=== PATIENT | female | born 1930 | race Caucasian/White ===

== ENCOUNTER 2018-03-13 16:07 | Emergency (ER) | payer MEDICARE, OTHER ==
[~2018-03-13] VITALS: Ht 167.6 cm; Wt 95.2 kg
[~2018-03-13 16:07] MED LIST: ASPI325; ASPI81CH PO; ASPI81EC; Amox Tr-K Clv1 EAC1 PO; BUME2 PO; CHRO200; CODLIVC PO; CYAN1000; DOC250 PO; GABA300 PO; GLUC500 PO; GLYMET5; HYDACE5; IBUP800; INSLI100I; INSULANI; INSULANPEN; LEVFLO250 PO; LEVFLO500; LEVFLO500 PO; LEVSOD75 PO; LOVA40; LOVA40 PO; MEGA BIOTIN10000 MCG PO; METO2.5 PO; NORT75 PO; OLME5TAB PO; OXYACE5T PO; Ocuvite Softge1 EAC1 PO; ROYAL JELLY PO; Renvela800 MG PO; STOMUL; Senna Laxative8.6 MG; Super B Comple150 MG PO; TOCO400; TURMERIC500 MG PO; VALS80; VITAMIN B12-FO1 EACH PO; Zofran Odt4 MG SL
[2018-03-13 17:38] LABS: BASOPHILS ABSOLUTE AUTO 0.06 K/mm3 (0.00-0.23); BASOPHILS PERCENT AUTO 1 % (0-2); EOSINOPHILS ABSOLUTE AUTO 0.28 K/mm3 (0.00-0.68); EOSINOPHILS PERCENT AUTO 3 % (0-6); Hematocrit 36.1 % (33.0-51.0); Hemoglobin 11.3 g/dL (11.5-16.0); IMMATURE GRAN ABSOLUTE AUTO 0.03 K/mm3 (0.00-0.10); IMMATURE GRAN PERCENT AUTO 0 % (0-1); LYMPHOCYTES ABSOLUTE AUTO 1.01 K/mm3 (0.84-5.20); LYMPHOCYTES PERCENT AUTO 10 % (21-46); MONOCYTES ABSOLUTE AUTO 1.03 K/mm3 (0.16-1.47); MONOCYTES PERCENT AUTO 10 % (4-13); Mean Corpuscular HGB 30.4 pg (26.0-34.0); Mean Corpuscular HGB Conc 31.3 g/dL (31.5-36.5); Mean Corpuscular Volume 97 fL (80-100); Mean Platelet Volume 9.4 fL (9.1-12.4); NEUTROPHILS ABSOLUTE AUTO 7.92 K/mm3 (1.96-9.15); NEUTROPHILS PERCENT AUTO 77 % (41-73); Platelet Count 477 K/mm3 (150-400); RDW Coefficient Variation 15.1 % (11.7-14.2); RDW Standard Deviation 54.1 fL (35.1-46.3); Red Blood Cell Count 3.72 M/mm3 (3.80-5.20); White Blood Cell Count 10.33 K/mm3 (4.00-11.30)
[2018-03-13 17:53] LABS: Albumin, Blood 3.4 g/dL (3.4-5.0); Albumin/Globulin Ratio 0.8 (0.8-1.8); Bilirubin, Total 0.2 mg/dL (0.1-1.0); Bun/Creatinine Ratio 16.9 (12.0-20.0); Calcium, Blood 9.7 mg/dL (8.5-10.1); Creatinine, Blood 2.19 mg/dL (0.40-1.00); Globulin, Blood 4.2 g/dL (2.2-4.0); Total Protein, Blood 7.6 g/dL (6.4-8.2)
[2018-03-13] MEDS ORDERED: CILO100 (18:01)
[2018-03-13] MEDS ORDERED: AMOCLA500 PO (18:02)
[2018-03-13] MEDS ORDERED: AMOX875 PO (18:03)
[2018-03-13 18:12] LABS: Creatine Kinase MB 6.7 ng/mL (0.0-3.6); Creatine Kinase MB Index 1.2 (0.0-4.0)
== END 2018-03-13 19:19 | disposition home or self-care (01) ==
LOC: ER 16:07
PROVIDERS: Physician Assistant
DX: S60.211A Contusion of right wrist, initial encounter (principal); E11.22 Type 2 diabetes mellitus with diabetic chronic kidney disease; N18.6 End stage renal disease; Z79.899 Other long term (current) drug therapy; Z79.82 Long term (current) use of aspirin; Z79.4 Long term (current) use of insulin; W19.XXXA Unspecified fall, initial encounter
CPT/HCPCS: 36415; 71046; 80053; 82550; 82553; 85025; 93005; 93010; 99284-25

== ENCOUNTER 2018-03-19 10:06 | Day surgery (SDC) | payer MEDICARE, OTHER ==
[~2018-03-19] VITALS: Ht 149.9 cm; Wt 81.0 kg
[~2018-03-19 10:06] MED LIST changes: +ACET500 PO; +AMOCLA500 PO; +AMOX875 PO; +CILO100; +LATANOPROST 0.7.5 ML BOTHEYES; +MEGARED OMEGA-1 EAC1 PO; -Senna Laxative8.6 MG; +Senna Laxative8.6 MG PO; +Stool Softener100 MG PO; +TOCO1000 PO; -TOCO400
--- NOTE | 2018-03-19 16:36 | NUR ---
1445-RECEIVED THIS PT FROM COUNSELING CENTER DIRECTOR. S/P STENT PLACED IN R POPLITEAL. PT IS DROWSY AND ORIENTED. SOMEWHAT SLEEPY MOST LIKELY SEDATING MEDICATION DURING PROCEDURE. LEFT GROIN ACCESS SITE HAS ANGIOSEAL CLOSURE. GROIN IS STABLE AND SOFT TO TOUCH. NO BLEEDING OR HEMATOMA NOTED. DOPPLED PULSES TO LEFT DP/PT, R POPLITEAL, R TB, NO DP PULSE NOTED. 1530-PT'S DAUGHTER REKHA AT BEDSIDE. EXPLAINED PLAN OF CARE TO PATIENT AND FAMILY. 1630-PT WAS SEEN BY DR. OGLESBY.
[2018-03-19 16:40] LABS: Anion Gap 8 mmol/L (6-16); Blood Urea Nitrogen 43 mg/dL (8-24); Bun/Creatinine Ratio 19.1 (12.0-20.0); CO2, Blood 23 mmol/L (21-32); Calcium, Blood 8.8 mg/dL (8.5-10.1); Chloride, Blood 106 mmol/L (98-108); Creatinine, Blood 2.25 mg/dL (0.40-1.00); Glomerular Filtration Rate 22 (60-); Glucose, Blood 137 mg/dL (70-99); Phosphorus, Blood 3.8 mg/dL (2.5-4.9); Sodium, Blood 137 mmol/L (136-145)
[2018-03-19] MEDS ORDERED: CYAN500 PO (18:00)
[2018-03-19] MEDS ORDERED: MEGARED OMEGA-1 EAC1 PO (18:02)
[2018-03-19] MEDS ORDERED: MIRALAX17 GM PO (18:07)
[2018-03-19] MEDS ORDERED: ROYAL JELLY PO (18:10)
[2018-03-19] MEDS ORDERED: LITTLE REMEDIE118 M1 PO (18:11)
[2018-03-19] MEDS ORDERED: TYLENOL325 MG PO (18:13)
--- NOTE | 2018-03-19 19:14 | NUR ---
SHIFT SUMMARY: PT IS ALERT AND ORIENTED. LEFT GROIN ACCESS SITE STABLE. PEDAL PULSES ARE ALL DOPPLED. DR. SOTO CAME BY TO SEE PT. PT WILL BE DIALYSED TOMORROW.
--- NOTE | 2018-03-19 20:00 | NUR ---
ASSUMED CARE OF PT AT 1900. REPORT RECEIVED AT BEDSIDE. PT PRESENTS IN BED. ALERT AND MILDLY CONFUSED. VERY PLEASANT AND COOPERATIVE WITH CARE AND ASSESSMENT. LEFT GROIN ACCESS SITE WITH SMALL AMOUNT OF SHADOW DRAINAGE ON CHG DRESSING. GROIN SOFT WITHOUT HEMATOMA. DOPPLER PULSES PERIPHERALLY. RIGHT FOOT WITH RUDDISH COLOR THOUGH IS WARM (WNL) TO TOUCH. LEFT LEG COOLER TO THE TOUCH WITH NORMAL COLORATION. WILL REVIEW CHART AND PLAN OF CARE FOR THIS PT.
--- NOTE | 2018-03-19 22:57 | NUR ---
PT HAS MADE ATTEMPTS TO URINATE AND HAS NOT BEEN ABLE TO GO. BLADDER SCAN DONE WHICH REVEALS GREATER THAN 999 ML URINE. CALL MADE TO DR SOTO. ORDER RECEIVED FOR CARREON CATHETER. PT MADE AWARE OF ORDER, AND IS ACCEPTING. PLACED 14 SLOVENIAN CARREON CATHETER WITHOUT ISSUES. RETURN OF CLEAR YELLOW URINE. PT STATES SHE FEELS RELIEF BLADDER DRAINS. SENT URINE SAMPLE FOR UA. PT NOW RESTING IN BED WITHOUT COMPLAINTS.
--- NOTE | 2018-03-20 02:44 | NUR ---
PT HAS BEEN ABLE TO REST WITHOUT COMPLAINTS SINCE PLACING CARREON CATHETER. HAVE EMPTIED. 925 ML URINE FROM CATHETER. GROIN ACCESS SITE AT LEFT GROIN SOFT WITHOUT HEMATOMA. NO INCREASE IN SHADOW DRAINAGE. DOPPLER PERIPHERAL PULSES. PT TOLERATES Q 2 HOUR TURNS. WILL CONTINUE TO MONITOR PT.
[2018-03-20 03:26] LABS: Source, Urine Catheter
[2018-03-20 03:32] LABS: Bilirubin, Urine Neg (Neg); Blood, Urine Neg (Neg); Glucose Qualitative, Urine 3+ (Neg); Ketones, Urine Neg (Neg); Leukocyte Esterase, Urine Neg (Neg); Nitrite, Urine Neg (Neg); Protein, Urine 3+ (Neg); Urobilinogen, Urine NORM (Normal)
[2018-03-20 03:34] LABS: Appearance, Urine Clear (Clear); Color, Urine Yellow (P-Yellow)
[2018-03-20 03:41] LABS: Bacteria Not Seen /hpf; Red Blood Cells, Urine Not Seen /hpf (0-2); Squamous Epithelial Cells Few /hpf (Few); White Blood Cells, Urine Not Seen /hpf (0-5)
[2018-03-20 04:04] LABS: Hematocrit 33.2 % (33.0-51.0); Hemoglobin 10.2 g/dL (11.5-16.0)
[2018-03-20 04:23] LABS: Albumin, Blood 2.9 g/dL (3.4-5.0); Anion Gap 9 mmol/L (6-16); Blood Urea Nitrogen 42 mg/dL (8-24); Bun/Creatinine Ratio 17.5 (12.0-20.0); CO2, Blood 26 mmol/L (21-32); Calcium, Blood 8.8 mg/dL (8.5-10.1); Chloride, Blood 107 mmol/L (98-108); Glomerular Filtration Rate 20 (60-); Glucose, Blood 75 mg/dL (70-99); Phosphorus, Blood 3.6 mg/dL (2.5-4.9); Potassium, Blood 4.3 mmol/L (3.5-5.5); Sodium, Blood 142 mmol/L (136-145)
--- NOTE | 2018-03-20 05:53 | NUR ---
PT HAS BEEN ABLE TO SLEEP THIS NIGHT. DOES AWAKEN EASILY TO VERBAL STIMULI. DENIES COMPLAINT. CARREON CATHETER REMAINS PATENT. DRAINING YELLOW URINE. LEFT GROIN SITE REMAINS SOFT WITHOUT HEMATOMA OR BLEED. CMS REMAIN RECORDED PREVIOUSLY. WILL CONTINUE TO MONITOR PT, AND WILL REPORT OFF TO ONCOMING RN.
--- NOTE | 2018-03-20 07:07 | NUR ---
JEREMIAH, FROM DIALYSIS CALLED. PATIENT IS TO BE DISHARGED TO DIALYSIS CLINIC FOR APPT AT 1230.
--- NOTE | 2018-03-20 07:22 | NUR ---
ASSUMED CARE REPORT FROM JUAN F PEREZ. LEFT GROIN SITE STABLE. RIGHT FOOT IS WARM AND PINK. GREAT TOE BLACK. BILAT PEDAL PULSES BY DOPPLER ONLY. PATIENT REPORTS SHE HAS AN APPOINTMENT WITH ROLL EXAMINER FOR TOE.
--- NOTE | 2018-03-20 08:28 | NUR ---
MD VISIT DR. OGLESBY IN. WILL ENTER DISCHARGE ORDERS
--- NOTE | 2018-03-20 09:44 | NUR ---
DAUGHTER CALLED. SHE WILL PICK PATIENT UP AT [facility] AFTER DIALYSIS.
[2018-03-20] MEDS ORDERED: CLOP75 PO (10:57)
[2018-03-20] MEDS ORDERED: TAMS.4ER PO (10:57)
--- NOTE | 2018-03-20 11:19 | NUR ---
[facility] SCHEDULED TO PICK PATIENT UP FOR APPT AT [facility]
--- NOTE | 2018-03-20 12:20 | NUR ---
PATIENT TAKEN BY WHEELCHAIR BY [facility] AT 1210
== END 2018-03-20 12:10 | disposition home or self-care (01) ==
LOC: MHTC 10:06 → ICUW 10:06 → MHTC 10:08 → ICUW 14:38 → MHTC 03-20 12:10
PROVIDERS: Internal Medicine; Internal Medicine Nephrology
DX: E11.51 Type 2 diabetes mellitus with diabetic peripheral angiopathy without gangrene (principal); I73.9 Peripheral vascular disease, unspecified; E11.22 Type 2 diabetes mellitus with diabetic chronic kidney disease; I12.0 Hypertensive chronic kidney disease with stage 5 chronic kidney disease or end stage renal disease; N18.6 End stage renal disease; D63.1 Anemia in chronic kidney disease; E86.9 Volume depletion, unspecified; Z99.2 Dependence on renal dialysis; Z88.5 Allergy status to narcotic agent
CPT/HCPCS: 36415; 37226; 37228; 51702; 75625; 75716; 75774; 76937; 80069; 81001; 82947; 83735; 84132; 85014; 85018; 85347; 99152; 99153; C1725; C1760; C1769; C1876; C1887; C1894; C2623; J0881; J1644; J1650; J2250; J2997; J3010; J7030; J7040; Q9967

== ENCOUNTER → 2018-03-31 | Outpatient (CLI) | payer MEDICARE, OTHER ==
[~2018-03-31] MED LIST changes: +ACET325S PR; +ATROPINE 0.01%-10 ML SL; +BIOTIN10000 MC1 PO; +BUME1 PO; +CHROMIUM PIC1000 MCG PO; +CLOP75 PO; +CYAN500 PO; +Cilostazol50 MG PO; +Cod Liver Oil1 EAC2 PO; +DOCU100 PO; +Humalog100 UNIT/1 SC; +INSULANPEN SC; +Istalol2.5 ML BOTHEYES; +LATANOPROST2.5 ML BOTHEYES; +LITTLE REMEDIE118 M1 PO; +LORA1 PO; +MEGA RED PO; +MIRALAX17 GM PO; +MORP20L SL; +OLME20 PO; +SEVEC800 PO; +Senna8.6 MG PO; +Super B With V1 EACH PO; +TAMS.4ER PO; +TYLENOL325 MG PO; +Transderm-Scop1 EACH TD; +Tylenol325 MG PO; +VITAMIN B12 PO; +VITAMIN E PO
== END | disposition home or self-care (01) ==
LOC: LAB SHORT 11:22 → PLD 11:22
DX: E11.59 Type 2 diabetes mellitus with other circulatory complications (principal); E11.621 Type 2 diabetes mellitus with foot ulcer; L97.509 Non-pressure chronic ulcer of other part of unspecified foot with unspecified severity
CPT/HCPCS: 88305; 88311

== ENCOUNTER 2018-04-15 16:51 | Inpatient (IN) | payer MEDICARE, OTHER ==
[~2018-04-15] VITALS: Ht 160 cm; Wt 72.7 kg
[~2018-04-15 16:51] MED LIST changes: -ACET325S PR; -ATROPINE 0.01%-10 ML SL; -BIOTIN10000 MC1 PO; -BUME1 PO; -CHROMIUM PIC1000 MCG PO; -Cilostazol50 MG PO; -Cod Liver Oil1 EAC2 PO; -DOCU100 PO; -Humalog100 UNIT/1 SC; -INSULANPEN SC; -Istalol2.5 ML BOTHEYES; -LATANOPROST2.5 ML BOTHEYES; -LORA1 PO; -MEGA RED PO; -MORP20L SL; -OLME20 PO; -SEVEC800 PO; -Senna8.6 MG PO; -Super B With V1 EACH PO; -Transderm-Scop1 EACH TD; -Tylenol325 MG PO; -VITAMIN B12 PO; -VITAMIN E PO
[2018-04-15] MEDS ORDERED: Humalog100 UNIT/1 SC (17:30)
[2018-04-15] MEDS ORDERED: INSULANPEN SC (17:30)
[2018-04-15] MEDS ORDERED: LOVA40 PO (17:31)
[2018-04-15] MEDS ORDERED: GABA300 PO (17:31)
[2018-04-15] MEDS ORDERED: CILO100 (17:31)
[2018-04-15] MEDS ORDERED: BUME1 PO (17:31)
[2018-04-15] MEDS ORDERED: OLME20 PO (17:32)
[2018-04-15] MEDS ORDERED: NORT75 PO (17:32)
[2018-04-15] MEDS ORDERED: SEVEC800 PO (17:32)
[2018-04-15] MEDS ORDERED: Cilostazol50 MG PO (17:33)
[2018-04-15] MEDS ORDERED: Istalol2.5 ML BOTHEYES (17:33)
[2018-04-15 17:50] LABS: BASOPHILS ABSOLUTE AUTO 0.05 K/mm3 (0.00-0.23); BASOPHILS PERCENT AUTO 1 % (0-2); EOSINOPHILS ABSOLUTE AUTO 0.53 K/mm3 (0.00-0.68); EOSINOPHILS PERCENT AUTO 5 % (0-6); Hematocrit 35.1 % (33.0-51.0); Hemoglobin 10.7 g/dL (11.5-16.0); IMMATURE GRAN ABSOLUTE AUTO 0.03 K/mm3 (0.00-0.10); IMMATURE GRAN PERCENT AUTO 0 % (0-1); LYMPHOCYTES ABSOLUTE AUTO 1.45 K/mm3 (0.84-5.20); LYMPHOCYTES PERCENT AUTO 15 % (21-46); MONOCYTES ABSOLUTE AUTO 0.88 K/mm3 (0.16-1.47); MONOCYTES PERCENT AUTO 9 % (4-13); Mean Corpuscular HGB 29.6 pg (26.0-34.0); Mean Corpuscular HGB Conc 30.5 g/dL (31.5-36.5); Mean Corpuscular Volume 97 fL (80-100); Mean Platelet Volume 10.3 fL (9.1-12.4); NEUTROPHILS ABSOLUTE AUTO 7.03 K/mm3 (1.96-9.15); NEUTROPHILS PERCENT AUTO 71 % (41-73); Platelet Count 371 K/mm3 (150-400); RDW Standard Deviation 60.3 fL (35.1-46.3); Red Blood Cell Count 3.62 M/mm3 (3.80-5.20); White Blood Cell Count 9.97 K/mm3 (4.00-11.30)
[2018-04-15 18:14] LABS: Alanine Aminotransfer (ALT/SGP 20 U/L (12-78); Albumin, Blood 3.4 g/dL (3.4-5.0); Albumin/Globulin Ratio 0.9 (0.8-1.8); Alk Phos 87 U/L (50-136); Anion Gap 10 mmol/L (6-16); Aspartate Aminotrans (AST/SGOT 13 U/L (12-37); Bilirubin, Total 0.3 mg/dL (0.1-1.0); Blood Urea Nitrogen 36 mg/dL (8-24); Bun/Creatinine Ratio 16.1 (12.0-20.0); CO2, Blood 24 mmol/L (21-32); Calcium, Blood 9.9 mg/dL (8.5-10.1); Chloride, Blood 105 mmol/L (98-108); Creatinine, Blood 2.24 mg/dL (0.40-1.00); Globulin, Blood 3.7 g/dL (2.2-4.0); Glomerular Filtration Rate 22 (60-); Glucose, Blood 115 mg/dL (70-99); Potassium, Blood 3.9 mmol/L (3.5-5.5); Sodium, Blood 139 mmol/L (136-145); Total Protein, Blood 7.1 g/dL (6.4-8.2); Troponin I <0.015 ng/mL (0.000-0.040)
[2018-04-15 18:33] LABS: Source, Urine Catheter
[2018-04-15 18:59] LABS: Bilirubin, Urine Neg (Neg); Blood, Urine 3+ (Neg); Glucose Qualitative, Urine Neg (Neg); Ketones, Urine Neg (Neg); Leukocyte Esterase, Urine 3+ (Neg); Nitrite, Urine Neg (Neg); Protein, Urine 3+ (Neg); Urobilinogen, Urine NORM (Normal)
[2018-04-15 19:27] LABS: Appearance, Urine Hazy (Clear); Color, Urine Yellow (P-Yellow)
[2018-04-15 19:28] LABS: Bacteria Many /hpf; Red Blood Cells, Urine 0-2 /hpf (0-2); Squamous Epithelial Cells Not Seen /hpf (Few); White Blood Cells, Urine TNTC /hpf (0-5)
--- NOTE | 2018-04-16 00:52 | NUR ---
ADMIT NOTE PT ADMITTED WITH TOXIC METABOLIC ENCEPHALOPATHY. PT ALERT TO SELF ONLY. PT EDUCATED [employer], PT STATES SHE KNOWS HOW TO USE IT. PT NOTED TO HAVE REDNESS TO LOWER EXTREMITIES BILAT, HAS DRESSING ON RIGHT FOOT DUE TO RECENT TOE AMPUTATION. DRESSING C/D/I. PT NOTED TO HAVE BRUISED INNER UPPER LEFT THIGH AND NOTED TO HAVE SMALL PRESSURE UCLER TO COCCYX, MEPILEX IN PLACE. BLADDER SCAN DONE PER ORDER AND IS [address] SOTO NOTIFIED PER ORDER.
[2018-04-16 06:00] LABS: BASOPHILS ABSOLUTE AUTO 0.06 K/mm3 (0.00-0.23); BASOPHILS PERCENT AUTO 1 % (0-2); EOSINOPHILS ABSOLUTE AUTO 0.66 K/mm3 (0.00-0.68); EOSINOPHILS PERCENT AUTO 8 % (0-6); Hematocrit 33.7 % (33.0-51.0); Hemoglobin 10.3 g/dL (11.5-16.0); IMMATURE GRAN ABSOLUTE AUTO 0.03 K/mm3 (0.00-0.10); IMMATURE GRAN PERCENT AUTO 0 % (0-1); LYMPHOCYTES ABSOLUTE AUTO 1.52 K/mm3 (0.84-5.20); LYMPHOCYTES PERCENT AUTO 18 % (21-46); MONOCYTES ABSOLUTE AUTO 0.68 K/mm3 (0.16-1.47); MONOCYTES PERCENT AUTO 8 % (4-13); Mean Corpuscular HGB 29.7 pg (26.0-34.0); Mean Corpuscular HGB Conc 30.6 g/dL (31.5-36.5); Mean Corpuscular Volume 97 fL (80-100); Mean Platelet Volume 10.3 fL (9.1-12.4); NEUTROPHILS ABSOLUTE AUTO 5.52 K/mm3 (1.96-9.15); NEUTROPHILS PERCENT AUTO 65 % (41-73); Platelet Count 367 K/mm3 (150-400); RDW Standard Deviation 61.1 fL (35.1-46.3); Red Blood Cell Count 3.47 M/mm3 (3.80-5.20); White Blood Cell Count 8.47 K/mm3 (4.00-11.30)
--- NOTE | 2018-04-16 06:15 | NUR ---
SHIFT SUMMARY PT SLEPT POORLY, CRYING MUCH OF NIGHT. PT RECEIVED TYLENOL AND TRAMADOL FOR PAIN. PT VOIDED 500 ML'S YELLOW URINE. URINE FOUL SMELLING. NEW MEPILEX PLACED ON COCCYX, SMALL PEN CAP SIZE HEALING PRESSURE ULCER NOTED. HEAVY ASSIST OF 2 AND GAIT BELT TO BSC, WOULD SUGGEST USING A BEDPAN NEXT TIME PT DOES NOT STAND WELL AND IS WEIGHT. PT RESISTIVE WHEN TRYING TO STAND. WILL CONTINUE TO MONITOR.
[2018-04-16 06:21] LABS: Magnesium, Blood 1.9 mg/dL (1.6-2.4)
[2018-04-16 07:03] LABS: Alanine Aminotransfer (ALT/SGP 16 U/L (12-78); Albumin, Blood 3.1 g/dL (3.4-5.0); Albumin/Globulin Ratio 0.9 (0.8-1.8); Alk Phos 82 U/L (50-136); Anion Gap 10 mmol/L (6-16); Aspartate Aminotrans (AST/SGOT 15 U/L (12-37); Bilirubin, Total 0.5 mg/dL (0.1-1.0); Blood Urea Nitrogen 31 mg/dL (8-24); Bun/Creatinine Ratio 15.6 (12.0-20.0); CO2, Blood 25 mmol/L (21-32); Calcium, Blood 8.6 mg/dL (8.5-10.1); Chloride, Blood 108 mmol/L (98-108); Creatinine, Blood 1.99 mg/dL (0.40-1.00); Globulin, Blood 3.6 g/dL (2.2-4.0); Glomerular Filtration Rate 25 (60-); Glucose, Blood 99 mg/dL (70-99); Phosphorus, Blood 2.8 mg/dL (2.5-4.9); Potassium, Blood 3.2 mmol/L (3.5-5.5); Sodium, Blood 143 mmol/L (136-145); Total Protein, Blood 6.7 g/dL (6.4-8.2)
[2018-04-16] MEDS ORDERED: LEVSOD75 PO (15:41)
[2018-04-16] MEDS ORDERED: ASPI81CH PO (15:44)
[2018-04-16] MEDS ORDERED: LATANOPROST2.5 ML BOTHEYES (15:48)
[2018-04-16] MEDS ORDERED: Tylenol325 MG PO (15:49)
[2018-04-16] MEDS ORDERED: Cod Liver Oil1 EAC2 PO (15:52)
[2018-04-16] MEDS ORDERED: MEGA RED PO (15:52)
[2018-04-16] MEDS ORDERED: Senna8.6 MG PO (15:53)
[2018-04-16] MEDS ORDERED: VITAMIN E PO (15:54)
[2018-04-16] MEDS ORDERED: Super B With V1 EACH PO (15:55)
[2018-04-16] MEDS ORDERED: BIOTIN10000 MC1 PO (15:55)
[2018-04-16] MEDS ORDERED: CHROMIUM PIC1000 MCG PO (15:56)
[2018-04-16] MEDS ORDERED: VITAMIN B12 PO (15:57)
[2018-04-16] MEDS ORDERED: DOCU100 PO (15:57)
[2018-04-16] MEDS ORDERED: ROYAL JELLY PO (15:57)
--- NOTE | 2018-04-16 16:31 | NUR ---
PT IS ALERT AND ORIENTED TO SELF. HER WOUNDS HAVE BEEN PHOTOGRAPHED, AND DOCUMENTED AND DRESSINGS CHANGED. HEEL PROTECTORS ARE IN PLACE. PT IS INCONTINENT OF BOWEL AND BLADDER. ATTENDS IN PLACE AND CHANGED NEEDED. LUCAS CARE PROVIDED NEEDED. PT MISSED DIALYSIS ON FRIDAY BUT IS SCHEDULED FOR DIALYSIS ON 04/17/18. PT'S FISTULA IS IN HER LEFT FOREARM. PT ABLE TO TAKE PILLS WHOLE IN APPLESAUCE. ACHS ON A MEDIUM SLIDING SCALE. DAUGHTER BROUGHT IN HOME MEDICATIONS TO COMPLETE MEDICATION RECONCILIATION. DAUGHTER ALSO BROUGHT PT'S BOOT TO WEAR WHEN WALKING.
--- NOTE | 2018-04-17 04:55 | NUR ---
SHIFT SUMMARY PT AWAKE OVER HALF THE NIGHT, MOANING, BUT WHEN ASKED IF HAVING PAIN PT DOES NOT ANSWER APPROPRIATLEY. PT RESISTS TURNS AND REPOSITIONING. PT DOES NOT FOLLOW DIRECTION. PT INCONTINENT OF URINE DURING THE NIGHT. PT GRABS AT LEFT HIP IF IN PAIN. PT FEARS FALLING WHEN BEING TURNED AND POSITIONED. NO ACUTE CHANGES NOTED, WILL CONTINUE TO MONITOR.
[2018-04-17 04:58] LABS: BASOPHILS ABSOLUTE AUTO 0.09 K/mm3 (0.00-0.23); BASOPHILS PERCENT AUTO 1 % (0-2); EOSINOPHILS ABSOLUTE AUTO 0.51 K/mm3 (0.00-0.68); EOSINOPHILS PERCENT AUTO 5 % (0-6); Hematocrit 37.5 % (33.0-51.0); Hemoglobin 11.3 g/dL (11.5-16.0); IMMATURE GRAN ABSOLUTE AUTO 0.03 K/mm3 (0.00-0.10); IMMATURE GRAN PERCENT AUTO 0 % (0-1); LYMPHOCYTES ABSOLUTE AUTO 1.15 K/mm3 (0.84-5.20); LYMPHOCYTES PERCENT AUTO 11 % (21-46); MONOCYTES PERCENT AUTO 8 % (4-13); Mean Corpuscular HGB 30.3 pg (26.0-34.0); Mean Corpuscular HGB Conc 30.1 g/dL (31.5-36.5); NEUTROPHILS ABSOLUTE AUTO 8.03 K/mm3 (1.96-9.15); NEUTROPHILS PERCENT AUTO 76 % (41-73); Platelet Count 398 K/mm3 (150-400); RDW Coefficient Variation 16.9 % (11.7-14.2); RDW Standard Deviation 63.1 fL (35.1-46.3); Red Blood Cell Count 3.73 M/mm3 (3.80-5.20); White Blood Cell Count 10.61 K/mm3 (4.00-11.30)
[2018-04-17 05:09] LABS: Mean Corpuscular Volume 101 fL (80-100)
[2018-04-17 05:32] LABS: Albumin, Blood 3.3 g/dL (3.4-5.0); Anion Gap 10 mmol/L (6-16); Blood Urea Nitrogen 28 mg/dL (8-24); Bun/Creatinine Ratio 15.1 (12.0-20.0); CO2, Blood 22 mmol/L (21-32); Calcium, Blood 8.9 mg/dL (8.5-10.1); Chloride, Blood 111 mmol/L (98-108); Creatinine, Blood 1.85 mg/dL (0.40-1.00); Glomerular Filtration Rate 27 (60-); Glucose, Blood 174 mg/dL (70-99); Phosphorus, Blood 2.9 mg/dL (2.5-4.9); Potassium, Blood 4.3 mmol/L (3.5-5.5); Sodium, Blood 143 mmol/L (136-145)
--- NOTE | 2018-04-17 15:00 | NUR ---
SPOKE WITH DR. COELHO ABOUT PATIENTS POOR INTAKE AND VERY LITTLE U/O. PULSE IN THE 120'S, PATIENT VERY AGITATED AND CONFUSED. ORDERS RECEIVED FOR LABS, IV FLUIDS AND CARREON PLACEMENT.
[2018-04-17 15:49] LABS: BASOPHILS ABSOLUTE AUTO 0.11 K/mm3 (0.00-0.23); BASOPHILS PERCENT AUTO 1 % (0-2); EOSINOPHILS ABSOLUTE AUTO 0.26 K/mm3 (0.00-0.68); EOSINOPHILS PERCENT AUTO 2 % (0-6); Hemoglobin 11.7 g/dL (11.5-16.0); IMMATURE GRAN ABSOLUTE AUTO 0.03 K/mm3 (0.00-0.10); IMMATURE GRAN PERCENT AUTO 0 % (0-1); LYMPHOCYTES ABSOLUTE AUTO 1.12 K/mm3 (0.84-5.20); LYMPHOCYTES PERCENT AUTO 9 % (21-46); MONOCYTES ABSOLUTE AUTO 0.94 K/mm3 (0.16-1.47); MONOCYTES PERCENT AUTO 8 % (4-13); Mean Corpuscular HGB 29.6 pg (26.0-34.0); Mean Corpuscular Volume 99 fL (80-100); Mean Platelet Volume 10.1 fL (9.1-12.4); NEUTROPHILS PERCENT AUTO 80 % (41-73); Platelet Count 408 K/mm3 (150-400); RDW Coefficient Variation 16.8 % (11.7-14.2); RDW Standard Deviation 61.4 fL (35.1-46.3); Red Blood Cell Count 3.95 M/mm3 (3.80-5.20); White Blood Cell Count 12.46 K/mm3 (4.00-11.30)
[2018-04-17 16:13] LABS: Albumin, Blood 3.3 g/dL (3.4-5.0); Albumin/Globulin Ratio 0.8 (0.8-1.8); Bilirubin, Total 0.3 mg/dL (0.1-1.0); Bun/Creatinine Ratio 14.9 (12.0-20.0); Calcium, Blood 9.2 mg/dL (8.5-10.1); Creatinine, Blood 2.01 mg/dL (0.40-1.00); Globulin, Blood 4.3 g/dL (2.2-4.0); Potassium, Blood 4.4 mmol/L (3.5-5.5); Total Protein, Blood 7.6 g/dL (6.4-8.2)
[2018-04-17 16:24] LABS: Source, Urine Catheter
[2018-04-17 16:36] LABS: Appearance, Urine Hazy (Clear); Bilirubin, Urine Neg (Neg); Blood, Urine 3+ (Neg); Color, Urine Yellow (P-Yellow); Glucose Qualitative, Urine 2+ (Neg); Ketones, Urine 1+ (Neg); Leukocyte Esterase, Urine 2+ (Neg); Nitrite, Urine Pos (Neg); Protein, Urine 3+ (Neg); Specific Gravity, Urine 1.015 (1.003-1.022); Urobilinogen, Urine NORM (Normal)
[2018-04-17 16:58] LABS: Squamous Epithelial Cells Rare /hpf (Few); White Blood Cells, Urine 25-50 /hpf (0-5)
[2018-04-17 16:59] LABS: Bacteria Few /hpf; Red Blood Cells, Urine 25-50 /hpf (0-2)
--- NOTE | 2018-04-17 18:12 | NUR ---
PATIENT VERY ANXIOUS AND CONFUSED THIS SHIFT, UNABLE TO ANSWER QUESTIONS OR FOLLOW COMMANDS. NOT EATING OR DRINKING SINCE YESTERDAY MORNING. SPOKE TO DAUGHTER MICHELLE WHO REPORTS THAT PATIENT IS ALLERGIC TO TRAMODOL, REPORTS AMS WITH THIS DRUG AND IT HAS NOW BEEN D/C'D. STARTED ON IV FLUIDS AND CARREON PLACED FOR ACCURATE OUTPUT. 18G IV TO R WRIST WNL, NS @ 100ML/HR INFUSING. ATIVAN GIVEN X2 THIS SHIFT TO CONTROL ANXIETY. DRESSINGS CHANGES TO RLE THIS AM, SUTURES REMAIN INTACT TO R GREAT TOE FROM RECENT AMPUTATION. NO DIALYSIS TODAY. LUNGS CLEAR/DIM, ON RA. MENTATION TOO ALTERED TO WORK WITH PT/OT TODAY.
--- NOTE | 2018-04-17 23:47 | NUR ---
PATIENT ANXIOUS AND GIVEN ATIVAN 1 MG IV PRN Q6. PATIENT ABLE TO FALL BACK TO SLEEP. NS INFUSING AT 100 ml/HR. CALL LIGHT IN REACH. BED IN LOWEST POSITION.
--- NOTE | 2018-04-18 03:43 | NUR ---
SHIFT SUMMARY PATIENT HAD NO ACUTE CHANGES OBSERVED THIS SHIFT. PATIENT LETHARGIC AT START OF SHIFT AND SLOWLY TOOK HER PO MEDICATION WITH WATER. AXOX 2 CONFUSED AND ANXIOUS. ATIVAN I MG IV PRN GIVEN PER EMAR. PATIENT ABLE TO STOP PULLING ON COVERS, LESS ANXIOUS AND ABLE TO GO BACK TO SLEEP. PIV REMAINS INTACT. NS INFUSING AT 100 mL/HR. IV ABX INFUSED. CBG 165. CARREON FOR I&O'S PATENT AND DRAINING. DRESSING ON BLE C/D/I. VSS/AFEBRILE. CALL LIGHT IN REACH. BED IN LOWEST POSITION. WILL CONTINUE TO MONITOR UNTIL DAY SHIFT NURSE ASSUMES CARE.
[2018-04-18 06:31] LABS: BASOPHILS ABSOLUTE AUTO 0.08 K/mm3 (0.00-0.23); BASOPHILS PERCENT AUTO 1 % (0-2); EOSINOPHILS ABSOLUTE AUTO 0.01 K/mm3 (0.00-0.68); EOSINOPHILS PERCENT AUTO 0 % (0-6); Hematocrit 39.5 % (33.0-51.0); Hemoglobin 11.9 g/dL (11.5-16.0); IMMATURE GRAN ABSOLUTE AUTO 0.05 K/mm3 (0.00-0.10); IMMATURE GRAN PERCENT AUTO 0 % (0-1); LYMPHOCYTES ABSOLUTE AUTO 0.72 K/mm3 (0.84-5.20); LYMPHOCYTES PERCENT AUTO 5 % (21-46); MONOCYTES ABSOLUTE AUTO 0.98 K/mm3 (0.16-1.47); MONOCYTES PERCENT AUTO 7 % (4-13); Mean Corpuscular HGB Conc 30.1 g/dL (31.5-36.5); Mean Corpuscular Volume 100 fL (80-100); Mean Platelet Volume 10.1 fL (9.1-12.4); NEUTROPHILS ABSOLUTE AUTO 12.83 K/mm3 (1.96-9.15); NEUTROPHILS PERCENT AUTO 88 % (41-73); Platelet Count 413 K/mm3 (150-400); RDW Coefficient Variation 16.9 % (11.7-14.2); RDW Standard Deviation 61.9 fL (35.1-46.3); Red Blood Cell Count 3.97 M/mm3 (3.80-5.20); White Blood Cell Count 14.67 K/mm3 (4.00-11.30)
[2018-04-18 06:47] LABS: Anion Gap 13 mmol/L (6-16); Blood Urea Nitrogen 41 mg/dL (8-24); Bun/Creatinine Ratio 17.7 (12.0-20.0); CO2, Blood 19 mmol/L (21-32); Calcium, Blood 8.8 mg/dL (8.5-10.1); Chloride, Blood 113 mmol/L (98-108); Creatinine, Blood 2.32 mg/dL (0.40-1.00); Glomerular Filtration Rate 21 (60-); Glucose, Blood 183 mg/dL (70-99); Magnesium, Blood 2.1 mg/dL (1.6-2.4); Phosphorus, Blood 3.1 mg/dL (2.5-4.9); Potassium, Blood 4.4 mmol/L (3.5-5.5); Sodium, Blood 145 mmol/L (136-145)
--- NOTE | 2018-04-18 10:36 | NUR ---
PT TRANSFERRED TO DIALYSIS VIA HOSPITAL BED.
--- NOTE | 2018-04-18 17:18 | NUR ---
PT WHIMPERING; DAUGHTER STATES "SHE DOES THAT AT HOME IT'S A SELF SOOTHING BEHAVIOR" HR 100, CHEEKS FLUSHED, OPENS EYES SPONTANEOUSLY TO VERBAL SIMULI. DR. ALTAMIRANO AT BEDSIDE WITH PATIENT AND AWARE OF CURRENT VITAL SIGNS.
--- NOTE | 2018-04-18 18:14 | NUR ---
SHIFT SUMMARY OPENS EYES TO VERBAL STIMULI. DIALYSIS COMPLETED TODAY. DAUGHTER/SENIOR PAYROLL SPECIALIST TO VISIT TODAY FOR SEVERAL HOURS. STATES "SHE SELF SOOTHES BY MOANING SO THAT IS HER NORMAL". PRESSURE ULCER TO SACRUM SITE CARE GIVEN. RLE AND RIGHT HEEL SHOWN TO DR. ALTAMIRANO IT APPEARS TO HAVE INCREASED REDDNESS. TURN Q2. INCONTINENT.
--- NOTE | 2018-04-19 03:00 | NUR ---
PATIENT STATING 85-88% ON RA. PUT ON 2L O2 NC AND STATING 99%. CALL LIGHT IN REACH. WILL CONTINUE TO MONITOR.
--- NOTE | 2018-04-19 03:43 | NUR ---
SHIFT SUMMARY PATIENT HAD NO ACUTE CHANGES OBSERVED THIS SHIFT. PATIENT MOANS BASELINE T/O SHIFT. PIV REMAINS INTACT. NS INFUSING AT 100 mL/HR. IV ABX INFUSED. PATIENT STATING 85-88% ON RA LATE IN SHIFT. PUT ON 2L O2 NC AND STATING 99%. VSS/AFEBRILE. CBG 178. AXO X1 WITH NONSENSICAL SPEECH. BEDFAST. MAY OPEN EYES TO VERBAL STIMULI. DRESSINGS ON FEET C/D/I. CALL LIGHT IN REACH. BED IN LOWEST POSITION. WILL CONTINUE TO MONITOR UNTIL DAY SHIFT NURSE ASSUMES CARE.
[2018-04-19 05:09] LABS: Hematocrit 41.3 % (33.0-51.0); Hemoglobin 12.7 g/dL (11.5-16.0)
[2018-04-19 05:13] LABS: Albumin, Blood 2.6 g/dL (3.4-5.0); Anion Gap 13 mmol/L (6-16); Blood Urea Nitrogen 51 mg/dL (8-24); CO2, Blood 17 mmol/L (21-32); Chloride, Blood 115 mmol/L (98-108); Creatinine, Blood 2.69 mg/dL (0.40-1.00); Glomerular Filtration Rate 18 (60-); Glucose, Blood 196 mg/dL (70-99); Magnesium, Blood 2.2 mg/dL (1.6-2.4); Phosphorus, Blood 3.1 mg/dL (2.5-4.9); Potassium, Blood 4.2 mmol/L (3.5-5.5); Sodium, Blood 145 mmol/L (136-145)
--- NOTE | 2018-04-19 18:36 | NUR ---
PATIENTS FAMILY AGREED TO MORPHINE AND ATIVAN GIVEN NEEDED. PATIENT CONTINUED TO MOAN AND GRIMACE . SHE DID SLEEP RIGHT AFTER THE ATIVAN WAS GIVEN BUT WAS OTHERWISE UP AND GROANING MOST OF THE SHIFT. SHE ATE ONLY WHEN FED BY DAUGHTER OR GRANDDAUGHTER. FAMILY CONTIPLATING STATUS CHANGE .
--- NOTE | 2018-04-20 03:06 | NUR ---
SHIFT SUMMARY PATIENT HAD NO ACUTE CHANGES OBSERVED. FAMILY PRESENT AT SHIFT CHANGE. PATIENT REMAINS NON-VERBAL AND CONTINUES TO MOAN/CRY. EYES MOSTLY SHUT. ATIVAN GIVEN PER EMAR FOR ANXIETY. MORPHINE 1 MG IV PRN FOR GENERAL PAIN. PATIENT ABLE TO SLEEP. PIV REMAINS INTACT. IV ABX INFUSED. ON 2L O2 NC. DRESSING CHANGE ON RIGHT CALF. VSS/AFEBRILE. CALL LIGHT IN REACH. BED IN LOWEST POSITION. WILL CONTINUE TO MONITOR UNTIL DAY SHIFT NURSE ASSUMES CARE. BED ALARM ACTIVATED.
--- NOTE | 2018-04-20 03:28 | NUR ---
PATIENT ABLE TO SLEEP LAST TWO HOURS AFTER MORPHINE 1 MG IV GIVEN FOR GENERAL PAIN. ON 2L O2 NC. CALL LIGHT IN REACH. WILL CONTINUE TO MONITOR.
[2018-04-20 04:51] LABS: Hematocrit 33.6 % (33.0-51.0)
[2018-04-20 05:31] LABS: Albumin, Blood 2.9 g/dL (3.4-5.0); Anion Gap 11 mmol/L (6-16); Blood Urea Nitrogen 68 mg/dL (8-24); Bun/Creatinine Ratio 19.9 (12.0-20.0); CO2, Blood 20 mmol/L (21-32); Calcium, Blood 8.4 mg/dL (8.5-10.1); Chloride, Blood 117 mmol/L (98-108); Creatinine, Blood 3.42 mg/dL (0.40-1.00); Glomerular Filtration Rate 13 (60-); Glucose, Blood 178 mg/dL (70-99); Magnesium, Blood 2.3 mg/dL (1.6-2.4); Phosphorus, Blood 3.4 mg/dL (2.5-4.9); Potassium, Blood 4.3 mmol/L (3.5-5.5); Sodium, Blood 148 mmol/L (136-145)
[2018-04-20 11:07] LABS: BASOPHILS PERCENT AUTO 1 % (0-2); EOSINOPHILS ABSOLUTE AUTO 0.44 K/mm3 (0.00-0.68); EOSINOPHILS PERCENT AUTO 4 % (0-6); Hematocrit 33.5 % (33.0-51.0); IMMATURE GRAN PERCENT AUTO 1 % (0-1); LYMPHOCYTES ABSOLUTE AUTO 1.53 K/mm3 (0.84-5.20); LYMPHOCYTES PERCENT AUTO 12 % (21-46); MONOCYTES ABSOLUTE AUTO 1.25 K/mm3 (0.16-1.47); MONOCYTES PERCENT AUTO 10 % (4-13); Mean Corpuscular HGB 29.8 pg (26.0-34.0); Mean Corpuscular HGB Conc 29.9 g/dL (31.5-36.5); Mean Corpuscular Volume 100 fL (80-100); Mean Platelet Volume 11.2 fL (9.1-12.4); NEUTROPHILS ABSOLUTE AUTO 8.87 K/mm3 (1.96-9.15); NEUTROPHILS PERCENT AUTO 72 % (41-73); Platelet Count 421 K/mm3 (150-400); RDW Coefficient Variation 17.6 % (11.7-14.2); RDW Standard Deviation 64.2 fL (35.1-46.3); Red Blood Cell Count 3.36 M/mm3 (3.80-5.20); White Blood Cell Count 12.29 K/mm3 (4.00-11.30)
--- NOTE | 2018-04-20 12:27 | NUR ---
SHE ATE SOME YOGURT, TOOK PO MEDS IN APPLESAUCE AND DRANKE TRICKLES OF WATER FROM THE BACK END OF A STRAW THIS MORNING. SHE IS NON-VERBAL BUT DOES CRY OR MOAN. SHE USES HER ABD ACCESSORY MUSCLES TO BREATHE. O2 INCREASED TO 3L FROM 2L THIS AM BECAUSE OF THE RESP. EFFORT USED. SHE WAS TAKEN TO DIALYSIS IN HER BED AT 0925. I HAVE GONE DOWN TO DIALYSIS X2 SINCE THEN TO MEDICATE HER FIRST WITH MORPHINE AND THEN ATIVAN. SHE HAD BEEN CRYING OUT. L ARM HAS A BRUITT AND THRILL. ATTENDS CHANGED FOR INC. DARK URINE PRIOR TO DIALYSIS. HWE SON PLANS TO VISIT HER AGAIN AFTER DIALYSIS.
--- NOTE | 2018-04-20 16:16 | NUR ---
SHE USUALLY LOOKS UNCOMFORTABLE. REPOSITIONING HER USUALLY LOOKS UNSUCCESSFUL. SHE BREATHES HARD INSPITE OF A LITTLE MORPHINE AND ATIVAN TODAY. DURING DIALYSIS AND AFTERWARD WHEN HER DAUGHTER WAS READING OUT LOUD TO HER, SHE CRIED AND MOANED. WHEN SHE IS ALONE WITHOUT STIMULUS AROUND HER, SHE IS QUIET. THEY TOOK 600 MLS OFF IN DIALYSIS TODAY.
[2018-04-20 18:51] LABS: Base Excess Venous 5.3 mmol/L; Bicarbonate Venous 28.7 mmol/L (24.0-30.0); PCO2 Venous 39.7 mmHg (38-42); PO2 Venous 56.3 mmHg (38-42); pH Blood Venous 7.47 (7.34-7.37)
[2018-04-21 05:04] LABS: BASOPHILS ABSOLUTE AUTO 0.07 K/mm3 (0.00-0.23); BASOPHILS PERCENT AUTO 1 % (0-2); EOSINOPHILS ABSOLUTE AUTO 0.79 K/mm3 (0.00-0.68); EOSINOPHILS PERCENT AUTO 8 % (0-6); Hematocrit 32.9 % (33.0-51.0); Hemoglobin 9.9 g/dL (11.5-16.0); IMMATURE GRAN ABSOLUTE AUTO 0.06 K/mm3 (0.00-0.10); IMMATURE GRAN PERCENT AUTO 1 % (0-1); LYMPHOCYTES ABSOLUTE AUTO 1.51 K/mm3 (0.84-5.20); LYMPHOCYTES PERCENT AUTO 15 % (21-46); MONOCYTES ABSOLUTE AUTO 1.01 K/mm3 (0.16-1.47); MONOCYTES PERCENT AUTO 10 % (4-13); Mean Corpuscular HGB 29.4 pg (26.0-34.0); Mean Corpuscular HGB Conc 30.1 g/dL (31.5-36.5); Mean Corpuscular Volume 98 fL (80-100); Mean Platelet Volume 11.1 fL (9.1-12.4); NEUTROPHILS ABSOLUTE AUTO 6.65 K/mm3 (1.96-9.15); NEUTROPHILS PERCENT AUTO 66 % (41-73); Platelet Count 372 K/mm3 (150-400); RDW Coefficient Variation 17.2 % (11.7-14.2); RDW Standard Deviation 61.6 fL (35.1-46.3); Red Blood Cell Count 3.37 M/mm3 (3.80-5.20); White Blood Cell Count 10.09 K/mm3 (4.00-11.30)
[2018-04-21 05:32] LABS: Albumin, Blood 2.7 g/dL (3.4-5.0); Anion Gap 9 mmol/L (6-16); Blood Urea Nitrogen 49 mg/dL (8-24); Bun/Creatinine Ratio 16.2 (12.0-20.0); CO2, Blood 30 mmol/L (21-32); Chloride, Blood 105 mmol/L (98-108); Creatinine, Blood 3.02 mg/dL (0.40-1.00); Glomerular Filtration Rate 16 (60-); Glucose, Blood 161 mg/dL (70-99); Magnesium, Blood 2.2 mg/dL (1.6-2.4); Potassium, Blood 3.9 mmol/L (3.5-5.5); Sodium, Blood 144 mmol/L (136-145)
--- NOTE | 2018-04-21 06:24 | NUR ---
SHIFT SUMMARY: PT SLEEPS THROUGH THE SHIFT, REMAINS AROUSABLE. PO PM MEDS HELD D/T DIFFICULTY STAYING AWAKE FOR SAFE SWALLOWING. NO PAIN OR ANXIETY MEDS ADMINISTERED THIS SHIFT PT IS STILL RECIEVING THE EFFECTS OF THE MEDS FROM PRIOR ADMINISTRATION. ON 2L VIA NC; ACCESSORY MUSCLE USE WITH RESPIRATIONS, APPEARS LABORED. NO OUTPUT THIS SHIFT REGARDLESS OF IV LASIX ADMINISTERED @ 2300; BLADDER SCAN UNREMARKABLE @ <100mL. DR SOTO IN TO SEE PT THIS AM AND STATES PT WILL NOT RECIEVE DIAYLSIS TODAY. NO OTHER ACUTE CHANGES TO REPORT.WILL CONT TO MONITOR AND PROVIDE CARE UNTIL PRESUMED BY ONCOMING RN.
--- NOTE | 2018-04-21 17:30 | NUR ---
SHIFT SUMMARY THE PATIENT PRESENTED THIS AM, WITH VITALS WNL, A&O TO SELF AND SOME SURROUNGINGS, LUNDS WERE DIN THROUGHOUT. THE PATIENT HAS DIALYSIS TODAY AND HAS COMPLAINED OF PAIN SINCE. THE PATIENT HAS RECEIVED NORPHINE AND ATIVAN FOR HER PAIN AND ANIEXTY. THE PATIENT HAD HER HEEL WOUND DRESSINGS CHANGED TODAY. THE PATIENT'S FAMILY HAS BEEN WITH THE PATIENT MOST OF THE SHIFT. THE PATIENT HAS BEEN IN ASHLEY CHAIR ALL SHIFT. WILL CONTINUE TO MONITOR.
[2018-04-22 05:00] LABS: Hematocrit 31.6 % (33.0-51.0); Hemoglobin 9.6 g/dL (11.5-16.0)
[2018-04-22 05:17] LABS: Albumin, Blood 2.9 g/dL (3.4-5.0); Anion Gap 9 mmol/L (6-16); Blood Urea Nitrogen 50 mg/dL (8-24); CO2, Blood 29 mmol/L (21-32); Calcium, Blood 8.3 mg/dL (8.5-10.1); Chloride, Blood 106 mmol/L (98-108); Creatinine, Blood 3.34 mg/dL (0.40-1.00); Glomerular Filtration Rate 14 (60-); Glucose, Blood 176 mg/dL (70-99); Magnesium, Blood 2.2 mg/dL (1.6-2.4); Phosphorus, Blood 3.3 mg/dL (2.5-4.9); Sodium, Blood 144 mmol/L (136-145)
--- NOTE | 2018-04-22 06:41 | NUR ---
SHIFT SUMMARY: PT PAINFUL TONIGHT. WAKES UP CRYING/MOANING/WINCING; TREATED 3X FOR PAIN c 1 MG IV MORPHINE AND 2X FOR ANIXETY c 1MG IV ATIVAN. PT ABLE TO SLEEP IN SPURTS. LS WET THIS AM; SUCTIONING PRN, NOT MUCH COMING UP. RT AT BEDSIDE THIS AM TO ASSESS WET LUNG SOUNDS. PT HAD 1 VOID SO FAR AFTER RECIEVING 2 DOSES OF IV LASIX. NEW IV STARTED THIS SHIFT; 20 G IN R WRIST. PATENT; SALINE LOCK. SLIGHT TEMP THIS AM OF 100.4; BROUGHT DOWN TO 99 AFTER 650 MG TYLENOL. NO OTHER ACUTE CHANGES. WILL CONT TO MONITOR AND PROVIE CARE UNTIL PRESMED BY ONCOMING RN.
--- NOTE | 2018-04-22 06:56 | NUR ---
LATE ENTRY @ 2300 PT O2 SATS DROPPING DOWN INTO THE 80s ON ROOM AIR. PLACED ON 2L VIA NC. O2 SATS NOW 91-92%.
--- NOTE | 2018-04-22 13:44 | NUR ---
ECHOCARDIOGRAM COMPLETED
--- NOTE | 2018-04-22 17:12 | NUR ---
SHIFT SUMMARY THE PATIENT PRESENTED THIS MORNING WITH VITALS WNL, A&O TO SELF ONLY, AND WITH LUNGS THAT WERE COARSE AND DIM THROUGHOUT. THE PATIENT HAD DIALYSIS TODAY AND HAD 1500 MLS OUT. THE PATIENT HAS NOT SPOKEN TODAY, EXCEPT MOANING AND CRYING. THE PATIENT'S FAMILY IS BRING IN THE PATIENT'S ADVANCE DIRECTIVE TOMORROW. THE PATIENT IS RESTING AT THIS TIME, WILL CONTINUE TO MONITOR.
[2018-04-23 05:13] LABS: BASOPHILS ABSOLUTE AUTO 0.09 K/mm3 (0.00-0.23); BASOPHILS PERCENT AUTO 1 % (0-2); EOSINOPHILS ABSOLUTE AUTO 0.73 K/mm3 (0.00-0.68); EOSINOPHILS PERCENT AUTO 7 % (0-6); Hematocrit 35.6 % (33.0-51.0); Hemoglobin 10.5 g/dL (11.5-16.0); IMMATURE GRAN ABSOLUTE AUTO 0.08 K/mm3 (0.00-0.10); IMMATURE GRAN PERCENT AUTO 1 % (0-1); LYMPHOCYTES ABSOLUTE AUTO 1.66 K/mm3 (0.84-5.20); LYMPHOCYTES PERCENT AUTO 15 % (21-46); MONOCYTES ABSOLUTE AUTO 0.96 K/mm3 (0.16-1.47); MONOCYTES PERCENT AUTO 9 % (4-13); Mean Corpuscular HGB Conc 29.5 g/dL (31.5-36.5); Mean Platelet Volume 10.8 fL (9.1-12.4); NEUTROPHILS ABSOLUTE AUTO 7.54 K/mm3 (1.96-9.15); NEUTROPHILS PERCENT AUTO 68 % (41-73); Platelet Count 314 K/mm3 (150-400); RDW Coefficient Variation 17.2 % (11.7-14.2); RDW Standard Deviation 65.1 fL (35.1-46.3); White Blood Cell Count 11.06 K/mm3 (4.00-11.30)
[2018-04-23 05:19] LABS: Mean Corpuscular Volume 102 fL (80-100)
[2018-04-23 05:44] LABS: Albumin, Blood 2.8 g/dL (3.4-5.0); Anion Gap 10 mmol/L (6-16); Blood Urea Nitrogen 43 mg/dL (8-24); Bun/Creatinine Ratio 12.3 (12.0-20.0); CO2, Blood 29 mmol/L (21-32); Calcium, Blood 8.5 mg/dL (8.5-10.1); Chloride, Blood 105 mmol/L (98-108); Glomerular Filtration Rate 13 (60-); Glucose, Blood 166 mg/dL (70-99); Magnesium, Blood 2.4 mg/dL (1.6-2.4); Phosphorus, Blood 4.4 mg/dL (2.5-4.9); Potassium, Blood 4.3 mmol/L (3.5-5.5); Sodium, Blood 144 mmol/L (136-145)
[2018-04-23 09:28] LABS: Alanine Aminotransfer (ALT/SGP 30 U/L (12-78); Albumin, Blood 2.8 g/dL (3.4-5.0); Albumin/Globulin Ratio 0.7 (0.8-1.8); Alk Phos 72 U/L (50-136); Aspartate Aminotrans (AST/SGOT 51 U/L (12-37); Bilirubin, Direct <0.1 mg/dL (0.0-0.3); Bilirubin, Indirect Unable to Calculate mg/dL (0.1-0.7); Bilirubin, Total 0.2 mg/dL (0.1-1.0); Globulin, Blood 3.9 g/dL (2.2-4.0); Total Protein, Blood 6.7 g/dL (6.4-8.2)
--- NOTE | 2018-04-23 17:22 | NUR ---
PT AOX1 TODAY. STARTED SHIFT OUT WITH A LOT OF MOANING. PER REFRACTORY BRICKLAYER REPORT IT WAS THOUGHT PT MAY HAVE HAD TO MUCH PAIN MEDICATION. FAMILY CAME IN WITH PT IT WAS REQUESTED TO TREAT FOR PAIN AND THEN ANXIETY. ONCE ATIVAN WAS GIVEN PT SLEPT MOST OF THE DAY. SPOKE WITH DR ROSE ABOUT PT BEING VERY SENSITIVE TO OPIATES AND HOW THEY HAVE IN THE PAST CAUSED PT TO BECOME SEVERELY CONFUSED. DECISION IS TO BRING FAMILY IN TO TALK WITH PALLIATIVE CARE AND MAKE A DECISION ON EITHER GOING OFF PAIN MEDICATION OR HEADING TOWARDS POSSIBLE COMFORT CARE. DR ROSE TRIED TO CONTACT FAMILY. WILL TRY TO MAKE CONTACT BEFORE SHIFT IS OVER. CONTINUING TO MONITOR PT.
--- NOTE | 2018-04-23 18:27 | NUR ---
pt in bed moaning and crying. Review of pt with bedside nurse who knows patient well. Assessment of patient. NOds yes to a few questions. head to toe physical pt did not grimace or react to palpation of muscle skeletal system until we reached right wrist and left hip and lower back and knee. pt has fistulla in right upper arm with postive bruit and thrill. right hand slightly swollen and iv in wrist with coban. pt has fistulla in left forarm with old dressing. removed dressing , newer slightly flat fistulla with positive bruit and thrill no brising or bleeding site clear. pt comforted with soothing touch and slow calming speech. she othen grabs at left abdomen and hip area and grimaces and moans. Reivewed use o tylenol and reduceing sedative meds and nursing presents poor historical tolerance or narcotics. will contact family and review how past few months have been for patient and theri needs and goals. nursing state minimal po intake and difficult to move pt. will review tolerance of dialysis and If pt tolerating UF with dialysis staff. Nursing states no verbal interaction today pt not wanting to eat. PPS score is 25%. will review hsopice quaifiers with care tech.
--- NOTE | 2018-04-23 19:18 | NUR ---
No family present at time of visit. Mrs. Andrade appeared to be in a restles sleep. she did not respond to me. Per chart, she is Baptism, so I sat bedside her and audibly prayed. Telephone Directory Deliverer services will remain available to pt and family.
--- NOTE | 2018-04-24 02:41 | NUR ---
PT STATUS PT HAS BEEN CRYING AND MOANING NON-STOP SINCE I BEGAN SHIFT AT 1900. I DID ADMINISTER Q 6 TYLENOL AT 2050 HRS. I CANNOT ADMIN MORE UNTIL 0251 HRS PER EMAR ORDERS. I PROVIDED HER WITH A WARM BLANKET, REPOSITIONED HER, GAVE HER ORAL CARE IN EFFORT TO DISTRACT HER - BUT TO NO AVAIL. ORDERS ARE VERY CLEAR THAT I MAY NOT ASK FOR NARCOTICS FOR THIS PT.
--- NOTE | 2018-04-24 03:34 | NUR ---
PT STATUS PT NOT FOLLOWING DIRECTIONS WELL. RELUCTANT TO SWALLOW PO MEDICATIONS, EVEN WHEN MIXED WITH APPLESAUCE.
--- NOTE | 2018-04-24 04:17 | NUR ---
SHIFT SUMMARY PT ADMITTED WITH ENCEPHALOPATHY. SHE IS A DIALYSIS PT BUT SHE DID NOT HAVE DIALYSIS TODAY. SHE HAS A HX OF ESRD, CHF, LEG & HIP PAIN, DM TYPE 2, HTN, AND TIA. EVEN WITH CRUSHING MEDS IN APPLESAUCE, SHE HESITATES TO SWALLOW AND HOLDS THE SAUCE IN HER MOUTH. SHE DOES NOT FOLLOW DIRECTION. ORDERS ARE TO NOT PROVIDE ANYTHING BUT TYLENOL FOR PAIN AT THIS TIME. SHE DID MOAN AND CRY THROUGHOUT SHIFT. SHE IS A Q 2 TURN. SHE HAS MEPILEX ON HER COCCYX AND HEELS. SHE HAS A MISSING RT GREAT TOE FROM A RECENT PROCEDURE. SHE HAS AN IV IN THE RT HAND THAT IS SALINE LOCKED AND FLUSHES WELL. SHE IS ACHS AND RECEIVES 2 LPM O2 IF O2 SAT IS < 90%.
[2018-04-24 05:31] LABS: Hematocrit 35.4 % (33.0-51.0); Hemoglobin 10.7 g/dL (11.5-16.0)
[2018-04-24 05:50] LABS: Anion Gap 11 mmol/L (6-16); Blood Urea Nitrogen 57 mg/dL (8-24); Bun/Creatinine Ratio 16.4 (12.0-20.0); CO2, Blood 28 mmol/L (21-32); Calcium, Blood 8.9 mg/dL (8.5-10.1); Chloride, Blood 108 mmol/L (98-108); Creatinine, Blood 3.48 mg/dL (0.40-1.00); Glomerular Filtration Rate 13 (60-); Glucose, Blood 133 mg/dL (70-99); Magnesium, Blood 2.6 mg/dL (1.6-2.4); Potassium, Blood 3.8 mmol/L (3.5-5.5); Sodium, Blood 147 mmol/L (136-145)
--- NOTE | 2018-04-24 16:15 | NUR ---
SHIFT SUMMARY NO ACUTE CHANGES. PATIENT MOANING AND CRYING CONTINUOUSLY DURING SHIFT. PATIENT HAD DIALYSIS THIS MORNING. PATIENT LESS CONFUSED THIS AFTERNOON AND ABLE TO ANSWER SIMPLE QUESTIONS. PATIENT'S SISTER VISITED AND REPORTS THAT THE PATIETN REACTED SIMILARLY TO PAIN MEDICATIONS IN THE PAST WITH CRYING AND CONFUSION. CALL LIGHT IN REACH, WILL CONTINUE TO MONITOR.
--- NOTE | 2018-04-24 22:30 | NUR ---
PT STATUS PT CRYING CONTINUOUSLY. BUT ABLE TO ANSWER YES OR NO QUESTIONS. WHEN ASKED IF SHE IS IN PAIN, SHE RESPONDED NO. HOWEVER, SHE PERIODICALLY DEMONSTRATES BODY LANGUAGE THAT INDICATES PAIN (ARCHING HER BACK, WINCING). DAYSHIFT NURSE REPORTED THAT PT WAS STILL POCKETING MEDICATIONS AND APPLESAUCE IN HER CHEEKS AND THAT NURSE FELT COMPELLED TO DIG OUT THE CRUSHED MEDICATIONS AND APPLESAUCE TO PREVENT ASPIRATION. I HAVE WITHELD THE PT'S PO MEDICATIONS A RESULT. HER VITAL SIGNS ARE WNL FOR THIS PT, NO REMARKABLE CHANGES FROM HER BASELINE. WILL CONTINUE TO MONITOR.
--- NOTE | 2018-04-25 04:20 | NUR ---
SHIFT SUMMARY THIS PT WAS ABLE TO ANSWER YES OR NO QUESTIONS TODAY, EVEN ANSWERING ME "I DON'T KNOW" WHEN I ASKED HER WHY SHE WAS CRYING. SHE STATED NO EVERY TIME I ASKED IF SHE HAD PAIN, ALTHOUGH HER BODY LAUNGUAGE AND EXPRESSION SEEM TO DEMONSTRATE DISCOMFORT OF SOME KIND. AGAIN, SHE CRIED OUT CONTINUALLY THROUGHOUT SHIFT AND DID NOT SLEEP. I WITHELD ALL ORAL MEDICATIONS SHE WAS FOUND BY MYSELF AND THE DAYTIME NURSE TO BE POCKETING THE APPLESAUCE/CRUSHED MEDICATIONS IN HER CHEEKS (+ASPIRATION RISK). SHE WILL NOT FOLLOW INSTRUCTIONS TO SWALLOW THE APPLESAUCE. SHE IS DRINKING GLUCERNA CHOCOLATE THROUGH A STRAW TODAY. ACCORDING TO ORDERS SHE IS NOT TO BE GIVEN NARCOTIC PAIN MEDICATIONS. SHE MAY RECEIVE OXYGEN VIA NC IF HER O2 SATURATION DROPS BELOW 90%. NO BP'S OR LAB DRAWS ARE TO BE TAKEN IN THE LEFT ARM SHE HAS A FISTULA THERE FOR HER DIALYSIS.
[2018-04-25 05:06] LABS: Hematocrit 37.7 % (33.0-51.0); Hemoglobin 11.7 g/dL (11.5-16.0)
[2018-04-25 05:46] LABS: Magnesium, Blood 2.6 mg/dL (1.6-2.4)
[2018-04-25 05:54] LABS: Albumin, Blood 3.1 g/dL (3.4-5.0); Anion Gap 10 mmol/L (6-16); Blood Urea Nitrogen 50 mg/dL (8-24); Bun/Creatinine Ratio 17.5 (12.0-20.0); CO2, Blood 30 mmol/L (21-32); Calcium, Blood 8.8 mg/dL (8.5-10.1); Chloride, Blood 105 mmol/L (98-108); Creatinine, Blood 2.85 mg/dL (0.40-1.00); Glomerular Filtration Rate 17 (60-); Glucose, Blood 206 mg/dL (70-99); Phosphorus, Blood 3.2 mg/dL (2.5-4.9); Potassium, Blood 3.8 mmol/L (3.5-5.5); Sodium, Blood 145 mmol/L (136-145)
--- NOTE | 2018-04-25 17:20 | NUR ---
SHIFT SUMMARY NO ACUTE CHANGES. PATIENT HAS CONTINUED TO CRY THROUGHOUT SHIFT ALTHOUGH IT HAS BEEN LESS IN INTENSITY THAN YESTERDAY. PATIENT MORE ALERT AND ABLE TO ANSWER SIMPLE QUESTIONS. PATIENT ATE AND DRANK A SMALL AMOUNT TODAY AND SHOWS AN INCREASING APPETITE. CALL LIGHT IN REACH, WILL CONTINUE TO MONITOR.
--- NOTE | 2018-04-26 05:23 | NUR ---
*SHIFT SUMMARY* PATIENT AWAKE AND CONFUSED. ANSWERED MOST YES AND NO QUESTIONS. PATIENT DID COMPLAIN OF PAIN IN RIGHT TOE AND WAS MEDICATED WITH TYLENOL SEE EMAR. PATIENT IS INCONTINENT AND A Q2HR TURN. PATIENT MOANED OFF AND ON UNTIL ABOUT MIDNIGHT, AND SLEPT THE REST OF THE NIGHT. NO NEW CHANGES TO ACUTE STATUS. CALL LIGHT WITHIN REACH, BED LOWERED AND LOCKED WITH ALARM ON. ALL WOUND DRESSINGS C/D/I.
[2018-04-26 05:32] LABS: Hematocrit 37.5 % (33.0-51.0); Hemoglobin 11.5 g/dL (11.5-16.0)
[2018-04-26 05:58] LABS: Anion Gap 9 mmol/L (6-16); Blood Urea Nitrogen 67 mg/dL (8-24); Bun/Creatinine Ratio 18.9 (12.0-20.0); CO2, Blood 30 mmol/L (21-32); Calcium, Blood 8.7 mg/dL (8.5-10.1); Chloride, Blood 107 mmol/L (98-108); Creatinine, Blood 3.55 mg/dL (0.40-1.00); Glomerular Filtration Rate 13 (60-); Glucose, Blood 183 mg/dL (70-99); Magnesium, Blood 2.8 mg/dL (1.6-2.4); Phosphorus, Blood 3.5 mg/dL (2.5-4.9); Potassium, Blood 3.8 mmol/L (3.5-5.5); Sodium, Blood 146 mmol/L (136-145)
--- NOTE | 2018-04-26 18:30 | NUR ---
SHIFT SUMMARY PATIENT IS ALERT DaY SHIFT 2/3. PATIENT MOANS AND YELLS SHOWING SIGNS OF PAIN BUT WHEN ASKED SHE DENIES PAIN OR VERBALIZED MINIMAL PAIN IN RIGHT FOOT OR LEFT HIP. CBR, TURN Q2. TOTAL FEEDER. SCATTERED WOUNDS
[2018-04-27 05:22] LABS: Hematocrit 40.6 % (33.0-51.0); Hemoglobin 12.3 g/dL (11.5-16.0)
--- NOTE | 2018-04-27 05:36 | NUR ---
*SHIFT SUMMARY* PATIENT IS ALERT AND RESPONDING TO QUESTIONS FROM STAFF. PATIENT IS STILL BEDBOUND AT THIS TIME. PATIENT'S MOANING HAS DECREASED SINCE YESTERDAY. PATIENT DENIED HAVING ANY PAIN. PATIENT SLEPT THROUGHOUT THE NIGHT WELL. THIS MORNING PATIENT HAD AN INCONTINENT BREIF. REDRESSED PATIENTS RIGHT BIG TOE WITH NON-ADHERENT PAD AND LOOSLY WRAPPED WITH HOWARD WRAP. ALL OTHER MEPLIX DRESSINGS ARE C/D/I. PATIENT IS SALINE LOCKED AT THIS TIME. PER REPORT FROM DAYSHIFT RN PATIENT IS TO HAVE DIALYSIS TODAY. NO ACUTE CHANGES IN PATIENT'S STATUS. CALL LIGHT IS WITHIN REACH, BED LOWERED AND LOCKED.
[2018-04-27 06:52] LABS: Anion Gap 11 mmol/L (6-16); Blood Urea Nitrogen 75 mg/dL (8-24); Bun/Creatinine Ratio 23.2 (12.0-20.0); CO2, Blood 26 mmol/L (21-32); Calcium, Blood 8.9 mg/dL (8.5-10.1); Chloride, Blood 109 mmol/L (98-108); Creatinine, Blood 3.23 mg/dL (0.40-1.00); Glomerular Filtration Rate 14 (60-); Glucose, Blood 207 mg/dL (70-99); Magnesium, Blood 2.9 mg/dL (1.6-2.4); Phosphorus, Blood 3.6 mg/dL (2.5-4.9); Potassium, Blood 4.2 mmol/L (3.5-5.5); Sodium, Blood 146 mmol/L (136-145)
--- NOTE | 2018-04-27 16:55 | NUR ---
PATIENT HAS HAD NO CHANGES THIS SHIFT. SHE WAS CALM AND TALKATIVE THIS MORNING BUT PROGRESSED TO MOANING THIS AFTERNOON. TYLENOL GIVEN BUT IT DOES NOT SEEM TO HELP. SHE HAD A LARGE BM AND WAS CLEANED UP AFTERWARDS. SHE IS RESTING AT THIS TIME .
[2018-04-28 05:38] LABS: Albumin, Blood 3.4 g/dL (3.4-5.0); Anion Gap 11 mmol/L (6-16); Blood Urea Nitrogen 59 mg/dL (8-24); Bun/Creatinine Ratio 16.9 (12.0-20.0); CO2, Blood 31 mmol/L (21-32); Chloride, Blood 102 mmol/L (98-108); Creatinine, Blood 3.49 mg/dL (0.40-1.00); Glomerular Filtration Rate 13 (60-); Glucose, Blood 178 mg/dL (70-99); Magnesium, Blood 2.6 mg/dL (1.6-2.4); Phosphorus, Blood 3.7 mg/dL (2.5-4.9); Potassium, Blood 4.3 mmol/L (3.5-5.5); Sodium, Blood 144 mmol/L (136-145)
[2018-04-28 05:43] LABS: Hemoglobin 17.9 g/dL (11.5-16.0)
[2018-04-28 05:50] LABS: Hematocrit 59.4 % (33.0-51.0)
--- NOTE | 2018-04-28 06:17 | NUR ---
*SHIFT SUMMARY* PATIENT ABLE TO ANSWER QUESTIONS FROM STAFF. PATIENT MOANS OFF AND ON THROUGHOUT SHIFT, BUT LESS FREQUENT THAN YESTERDAY. PATIENT SLEPT WELL DURING SHIFT. NO COMPLAINT'S OF PAIN DURING SHIFT. PATIENT SWALLOWED MEDICATIONS IN APPLE SAUCE AND DRANK SOME PO FLUIDS. PATIENT REPORTS THAT HER THROAT FEELS A LITTLE SORE TODAY. DRESSING'S TO WOUNDS ARE C/D/I. HEELS ARE FLOATED. VITAL SIGNS ARE WNL. NO NEW CHANGES TO ACUTE STATUS. CALL LIGHT WITHIN REACH, BED LOWERED AND LOCKED.
--- NOTE | 2018-04-28 16:14 | NUR ---
PATIENT HAS RESTED MOST OF THE SHIFT. PATIENT HAD BETTER AFTERNOON TODAY HER PAIN MEDS WERE CHANGED. FAMILY AT BEDSIDE THROUGH OUT THE DAY. PATIENTS APPETITE IMPROVED THIS SHIFT.
--- NOTE | 2018-04-29 00:29 | NUR ---
PT WITH CLINIMIX RUNNING AND NOTED SOME EDEMA RT ARM. DC IV AFTER FINDING EDEMA AND SITE LEAKING. ATTEMPTED IV ACESS ON RT FOREARM AND UNABLE TO GET ACCESS. ASKED CLINICAL REHAB LIAISON JATIN AND SHE WAS UNABLE TO FIND GOOD ACCESS. SHE ASKED CNC MILL OPERATOR SULEMAN ROGEL TO ASSESS FOR SITE. WILL CONTINUE TO TRY RT UPPERE ARM INFILTATE LOWER RT ARM. LT ARM AV FISTULA FOR DIALYSIS SO UNABLE TO USE LT UE FOR IV ACCESS.
--- NOTE | 2018-04-29 02:14 | NUR ---
87 YEAR OLD DIALYSIS PT WHO HAD RT GREAT TOE AMPUTATION AND HAD TOXIC ENCEPH POSTOP WITH PAINFUL BEHAVIORS, MOANING AND CRYING. TYLENOL 1000 MG GIVEN WITH HELPFUL EFFECT. CLINIMIX GIVEN AT 50 ML HR. WAS ABLE TO REESTABLISH IV ACCESS AFER SEVERAL ATTEMPTS. POOR ORAL INTAKE NEEDS FED. DID TAKE GLYCERNA AND MILK AND WATER WHEN SET UP AND CUED. SHE DOES TAKE GOWN OFF FREQUENTLY AND UNABLE TO USE CALLBELL. RT GREAT TOE AMPUTATION SITE WITH DRY INTACT SUTURES. BLOOD GLUCOSE CONTINUES ELEVATED ABOVE 300 WITH 11 UNITS REGULAR INSULIN GIVEN PER SLIDING SCALE. LANTUS INSULIN WAS INCREASED TO [address] F[address] PRECAUTIONS IN PLACE TURNED AND REPOSITIONED Q 2 HOURS.
[2018-04-29 04:56] LABS: Hematocrit 34.3 % (33.0-51.0); Hemoglobin 10.5 g/dL (11.5-16.0)
[2018-04-29 05:21] LABS: Albumin, Blood 2.9 g/dL (3.4-5.0); Anion Gap 10 mmol/L (6-16); Blood Urea Nitrogen 80 mg/dL (8-24); Bun/Creatinine Ratio 21.8 (12.0-20.0); CO2, Blood 29 mmol/L (21-32); Calcium, Blood 8.9 mg/dL (8.5-10.1); Chloride, Blood 100 mmol/L (98-108); Creatinine, Blood 3.67 mg/dL (0.40-1.00); Glomerular Filtration Rate 12 (60-); Glucose, Blood 311 mg/dL (70-99); Magnesium, Blood 2.8 mg/dL (1.6-2.4); Phosphorus, Blood 4.3 mg/dL (2.5-4.9); Potassium, Blood 4.3 mmol/L (3.5-5.5); Sodium, Blood 139 mmol/L (136-145)
--- NOTE | 2018-04-29 19:34 | NUR ---
PATIENT UNABLE TO GET OUT OF BED EVEN WITH PHYSICAL THERAPY TODAY. INCONTINENT THIS SHIFT. TOE HAS DARK AREAS AROUND HEALING SITE, PASSED THIS INFORMATION TO STAFF EDITOR, DR NEEDS TO RE-ASSESS TOMORROW. MOANS BUT THEN STATES SHE IS NOT IN PAIN. WILL CONTINUE TO MONITOR
[2018-04-30 05:23] LABS: Hematocrit 36.6 % (33.0-51.0); Hemoglobin 11.2 g/dL (11.5-16.0)
[2018-04-30 05:45] LABS: Albumin, Blood 3.2 g/dL (3.4-5.0); Anion Gap 8 mmol/L (6-16); Blood Urea Nitrogen 64 mg/dL (8-24); Bun/Creatinine Ratio 19.8 (12.0-20.0); CO2, Blood 30 mmol/L (21-32); Calcium, Blood 9.4 mg/dL (8.5-10.1); Chloride, Blood 99 mmol/L (98-108); Creatinine, Blood 3.24 mg/dL (0.40-1.00); Glomerular Filtration Rate 14 (60-); Glucose, Blood 244 mg/dL (70-99); Magnesium, Blood 2.8 mg/dL (1.6-2.4); Phosphorus, Blood 4.5 mg/dL (2.5-4.9); Potassium, Blood 4.4 mmol/L (3.5-5.5); Sodium, Blood 137 mmol/L (136-145)
--- NOTE | 2018-04-30 06:09 | NUR ---
SHIFT SUMMARY PT HAS SLEPT SOUNDLY T/O NIGHT. AOX1. VSS. DENIES N/V, SOB OR PAIN. YET PT HAS MANY NON-VERBAL S/S OF PAIN, INCLUDING MOANING & GRIMACING WHEN MOVED, MEDICATED 1X W/TYLENOL PER ORDERS & NO FURTHER DISCOMFORT HAS BEEN NOTICED AT THIS TIME. ALL DRESSINGS ON BLE & COCCYX WERE CHANGED THIS SHIFT & ARE C/D/I. RIGHT GREAT TOE AMPUTATION HAS DARK BLACKISH/BROWN SKIN AROUND SUTURE SITES & IS W/O ANY DRAINAGE. CBG @HS WAS 323, INSULIN WAS GIVEN PER ORDERS. PT HAS BEEN INCONTINENT, THEREFORE CHANGED & REPOSITIONED Q2H PRN. ORAL CARE WAS PERFORMED THIS AM. CALL LIGHT IS IN REACH & I WILL CONT. TO MONITOR PT UNTIL DAY SHIFT RN ASSUMES CARE.
--- NOTE | 2018-04-30 07:54 | NUR ---
Patient Permission Patient gave permission for me to care for her today 04/30/18.
--- NOTE | 2018-04-30 12:24 | NUR ---
SHIFT SUMMARY PATIENT DROWSY THROUGH OUT SHIFT. RESPONDED BRIEFLY TO QUESTIONS BEFORE FALLING BACK ASLEEP. NO COMPLAINTS OF PAIN HOWEVER SHE GRIMMACED AND MOANED WHILE MOVING LOWER EXTREMITIES. PATIENT DENIED FOOD AND LIQUIDS. REPOSITIONED Q2 HRS TOLLERATED. PALLIATIVE CARE REQUESTED CONSULT WITH PATIENT AND FAMILY TO DISCUSS HOSPICE. PO MEDS HELD DUE PATIENT BEING LETHARGIC. PATIENT IS ASLEEP AT THIS TIME. BED ALARM ON. BED RAILS IN PLACE. CALL LIGHT WITHIN REACH.
--- NOTE | 2018-04-30 14:18 | NUR ---
Pt is moaning softly in bed. Two daughters are at bedside. They state that they believe her to look much better today that she has been. Reviewed care plan. Pt did not work with physical therapy today, this was reviewed with daughters. Reviewed medications and symptoms. It appears that pt is in pain by the way that she is moaning, however, daughter explains that this is the patient's coping behavior to reduce stress. Pt is not verbal to to me at this time, but daughters have stated that she was talking earlier today with success. She spoke about the extra help that the daughters have coming to work [place] their [place]. Will remain available.
--- NOTE | 2018-04-30 18:35 | NUR ---
SHIFT SUMMARY PT HAS BEEN VERY SLEEPY THIS SHIFT. PT DID NOT EAT BREAKFAST OR LUNCH THIS SHIFT BECAUSE SHE WOULD NOT WAKE UP LONG ENOUGH TO EAT OR DRINK. PT HAS BECOME MORE AWAKE THIS EVENING AND ATE 40% OF DINNER. NO COMPLAINTS OF PAIN THIS SHIFT. THIS RN GOT THE TYLENOL CHANGED TO MI DUE TO PT TOO DROWSY TO TAKE ANYTHING ORAL EARLIER IN THE DAY. NO ACUTE CHANGES AT THIS TIME. [facility] AND REPORT TO ONCOMING RN.
[2018-05-01 05:10] LABS: Hematocrit 34.1 % (33.0-51.0); Hemoglobin 10.5 g/dL (11.5-16.0)
[2018-05-01 05:36] LABS: Anion Gap 10 mmol/L (6-16); Blood Urea Nitrogen 76 mg/dL (8-24); CO2, Blood 26 mmol/L (21-32); Calcium, Blood 9.2 mg/dL (8.5-10.1); Chloride, Blood 99 mmol/L (98-108); Creatinine, Blood 3.45 mg/dL (0.40-1.00); Glomerular Filtration Rate 13 (60-); Glucose, Blood 312 mg/dL (70-99); Magnesium, Blood 2.8 mg/dL (1.6-2.4); Phosphorus, Blood 4.1 mg/dL (2.5-4.9); Potassium, Blood 4.5 mmol/L (3.5-5.5); Sodium, Blood 135 mmol/L (136-145)
--- NOTE | 2018-05-01 05:57 | NUR ---
SHIFT SUMMARY PT HAS NOT SLEPT T/O NIGHT & HAS BEEN MOANING/WIMPERING/TALKING TO SELF IN ROOM ALL NIGHT. PT APPEARS MORE CONFUSED THIS SHIFT & SPEECH IS NON-SENSICAL @TIMES. PT REPORTS PAIN IN ABD/BACK & RLE, MEDICATED 2X W/TYLENOL PER ORDERS & PT IS STILL FOUND MOANING/WIMPERING BUT DENIES PAIN THIS AM. NO S/S N/V OR SOB. CHEM BG @HS WAS 318, COVERAGE PROVIDED PER ORDERS. PT CHANGED & REPOSITIONED Q2H & PRN. ALL MEPILEX DRESSINGS ARE C/D/I. 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 CALL LIGHT IS IN REACH & I WILL CONT. TO MONITOR PT UNTIL DAY SHIFT RN ASSUMES CARE.
--- NOTE | 2018-05-01 18:44 | NUR ---
SHIFT SUMMARY NO ACUTE CHANGES THIS SHIFT. PT HAD DIALYSIS THIS AM. PT HAS BEEN SLEEPING MOST OF THE DAY SINCE RETURNING FROM DIALYSIS. PT C/O PAIN TO RIGHT HIP WITH MOVEMENT. PLACED LIDOCAINE PATCH TO RIGHT HIP. IV CLINIMIX INFUSING W/O DIFFICULTY. BLOOD SUGARS CONTINUE TO BE ELEVATED AND PT HAS NOT HAD AN APPETITE. CALL LIGHT IN REACH AND BED ALARM ON FOR SAFETY. WILL REPORT TO ONCOMING RN.
[2018-05-02 05:29] LABS: Hematocrit 34.5 % (33.0-51.0); Hemoglobin 10.5 g/dL (11.5-16.0)
[2018-05-02 05:45] LABS: Anion Gap 8 mmol/L (6-16); Blood Urea Nitrogen 57 mg/dL (8-24); Bun/Creatinine Ratio 19.8 (12.0-20.0); CO2, Blood 29 mmol/L (21-32); Chloride, Blood 100 mmol/L (98-108); Creatinine, Blood 2.88 mg/dL (0.40-1.00); Glomerular Filtration Rate 16 (60-); Glucose, Blood 257 mg/dL (70-99); Magnesium, Blood 2.8 mg/dL (1.6-2.4); Phosphorus, Blood 5.2 mg/dL (2.5-4.9); Potassium, Blood 4.6 mmol/L (3.5-5.5); Sodium, Blood 137 mmol/L (136-145)
--- NOTE | 2018-05-02 06:23 | NUR ---
SHIFT SUMMARY ALERT TO SELF. RESPONDS TO VERBAL STIMULI. REMAINS ON BEDREST. MOANING NOTED AROUND 0100. QUESTIONED ABOUT PAIN/DISCOMFORT; STATED "NO". NO OUTWARD S/SX OF PAIN/DISCOMFORT. RECEIVED SCHEDULED TYLENOL @ BEDTIME. NO ACUTE CHANGES NOTED OVERNIGHT. CLINAMIX INFUSING WITHOUT COMPLICATIONS. BLOOD SUGARS CHECKED AND REMAIN ELEVATED. APPEARED TO REST MUCH OF SHIFT. BED IN LOWEST POSITION. ALARM ON. VSS/AFEBRILE. CALL LIGHT IN REACH. WCTM. REPORT TO ONCOMING RN.
--- NOTE | 2018-05-02 18:14 | NUR ---
SHIFT SUMMARY HAMILTON SHOWED S/S OF NONVERBAL PAIN THIS SHIFT WITH MOANING AND CREASED BROW, BUT FALLS ASLEEP QUICKLY AND ALWAYS DENIES PAIN. SCHEDULED TYLENOL. WHEN TURNING, SHE CRIES OUT FREQUENTLY; WHEN ASKED IF IT WAS PAIN OR IF SHE WAS AFRAID, SHE ENDORSED FEAR. CBGS HIGH, SPOKE TO DR ARMENDARIZ OF HIGHER CBGS AND SHE INCREASED PM LANTUS. L FOREARM FISTULA STILL DRESSED, TO HD TOMORROW PER DIALYSIS NURSE. CONFUSED BUT COOPERATIVE. PER DR ARMENDARIZ, WE WERE TO REMOVE STITCHES, THIS WAS DONE THIS SHIFT. PUREE AND NECTAR THICKS PROVIDED BUT PT HAS VERY POOR APPETITE (ONLY WILL HAVE VANILLA ENSURE). ALL WOUNDS CLEANSED AND PICS TAKEN AND PUT IN CHART, AND NEW DRESSINGS APPLIED. Q2 AND INCONTINENCE CARE PROVIDED. HAD SOFT FORMED BM TODAY. HEELS FLOATED AND HEEL PROTECTORS ON. CLINIMIX RUNNINGN AT 50/HR. ASP PRECAUTIONS FOLLOWED. WCTM
--- NOTE | 2018-05-03 06:32 | NUR ---
SHIFT SUMMARY RESPONDS TO VERBAL STIMULI. ALERT TO SELF. REMAINS ON BED REST. NEW MEPILEX TO COCCYX; NO BREAKDOWN TO SKIN, BUT NOTABLE SCARING FROM POSSIBLY AN OLD ULCER. MEDS CRUSHED IN APPLESAUCE. BLOOD SUGARS CHECKED AND REMAINED HIGH. CLINAMIX INFUSING WITHOUT COMPLICATION. MOANING/CRYING AT BEGINNING OF SHIFT; GIVEN PAIN MEDICATION BY PREV SHIFT RN. APPEARED TO REST AT AROUND 0100 AND HAS NOT AWOKEN. VSS/AFEBRILE. NO ACUTE CHANGES NOTED OVERNIGHT. BED IN LOWEST POSITION. BED ALARM ON. CALL LIGHT IN REACH. WCTM. REPORT TO ONCOMING RN.
[2018-05-03 07:20] LABS: Hematocrit 35.1 % (33.0-51.0); Hemoglobin 10.5 g/dL (11.5-16.0)
[2018-05-03 07:34] LABS: Anion Gap 9 mmol/L (6-16); Blood Urea Nitrogen 77 mg/dL (8-24); Bun/Creatinine Ratio 24.1 (12.0-20.0); CO2, Blood 28 mmol/L (21-32); Calcium, Blood 9.1 mg/dL (8.5-10.1); Chloride, Blood 99 mmol/L (98-108); Creatinine, Blood 3.19 mg/dL (0.40-1.00); Glomerular Filtration Rate 15 (60-); Glucose, Blood 169 mg/dL (70-99); Magnesium, Blood 2.8 mg/dL (1.6-2.4); Phosphorus, Blood 5.5 mg/dL (2.5-4.9); Sodium, Blood 136 mmol/L (136-145)
--- NOTE | 2018-05-03 09:10 | NUR ---
PATIENT GOING TO DIALYSIS TRANSPORTED VIA BED.
--- NOTE | 2018-05-03 12:32 | NUR ---
ASKED FOR ONE TIME DOSE TRAMADOL. PATIENT STS PAIN ALL OVER POST DIALYSIS. OK TO ORDER TRAMADOL 50 MG ONE TIME
--- NOTE | 2018-05-03 15:08 | NUR ---
2 RN'S LOOK FOR IV ASSESS AND UNABLE TO GET AFTER 2 ATTEMPTS. BUSINESS INTELLIGENCE ENGINEER WILL CHECK.
--- NOTE | 2018-05-03 18:08 | NUR ---
PATIENT ALERT TO SELF. MEPILEX IN PLACE COCCYX AND BILATERAL HEELS. CLINIMIX INFUSING @ 50 ML/HR WITHOUT DIFFICULTY. CBG WAS HIGH BEFORE DINNER. INITIALLY MEDICATED FOR PAIN W/ONE TIME ORDER OF TRAMADOL WITH GOOD RESULTS. PATIENT HAD BED BATH LATE IN SHIFT AND WAS ALSO MOVED A FEW TIMES FOR SOILED BRIEFS AFTER BATH. MOANING OFF AND ON SINCE BATH. WHEN ASKED ABOUT PAIN, DENIES. ONCE SAID "PAIN IN BACK". ADJUSTED W/PILLOWS WITH WHAT APPEARS SOME RELIEF. POOR APPETITE. TURNED AND BRIEF CHECK Q 2 HOURS. BED IN LOW POSITION. DOES NOT USE CALL LIGHT. WILL CONTINUE TO MONITOR.
--- NOTE | 2018-05-04 04:39 | NUR ---
SHIFT SUMMARY HAD A DIFFICULT NIGHT. PATIENT WAS CRYING/MOANING; ALTHOUGH ALERT TO VERBAL STIMULATION AND WOULD STOP AND ANSWER QUESTIONS. NOTABLE INCREASED NON-SENSICAL SPEECH THIS SHIFT. DENIED PAIN/DISCOMFORT WHEN QUESTIONED. HOWEVER APPEARED PAINFUL WITH MOVEMENT. CLINAMIX RUNNING TO NEW 20 IV IN RFA WITHOUT COMPLICATIONS; PATIENT PULLED PREVIOUS. APPEARED TO FINALLY SETTLE DOWN AROUND 0300 AND HAS BEEN RESTING SINCE. VSS/AFEBRILE. WCTM. BED IN LOWEST POSITION. ALARM ON. CALL LIGHT IN REACH. REPORT TO ONCOMING RN.
[2018-05-04 05:23] LABS: Hematocrit 34.5 % (33.0-51.0); Hemoglobin 10.6 g/dL (11.5-16.0)
[2018-05-04 05:47] LABS: Albumin, Blood 2.8 g/dL (3.4-5.0); Anion Gap 8 mmol/L (6-16); Blood Urea Nitrogen 62 mg/dL (8-24); Bun/Creatinine Ratio 25.2 (12.0-20.0); CO2, Blood 27 mmol/L (21-32); Calcium, Blood 9.2 mg/dL (8.5-10.1); Chloride, Blood 105 mmol/L (98-108); Creatinine, Blood 2.46 mg/dL (0.40-1.00); Glomerular Filtration Rate 20 (60-); Glucose, Blood 189 mg/dL (70-99); Magnesium, Blood 2.8 mg/dL (1.6-2.4); Phosphorus, Blood 4.1 mg/dL (2.5-4.9); Potassium, Blood 4.9 mmol/L (3.5-5.5); Sodium, Blood 140 mmol/L (136-145)
--- NOTE | 2018-05-04 10:38 | NUR ---
SPOKE WITH DR. ARMENDARIZ ABOUT PT'S MOANING AND C/O PAIN UNRELIEVED BY CURRENT MEDS ORDERED.
--- NOTE | 2018-05-05 06:59 | NUR ---
SUMMARY: ORIENTED TO SELF/FAMILY, ANSWERS SOME Q'S APPROPRIATELY AND SPECIFIES NEEDS. SHE MOANS OFTEN BUT ROXINOL 10MG PO IS EFFECTIVE AT RELIEIVING "ALL OVER PAIN". TURN SCHEDULE MAINTAINED AND ATTENDS CHANGED PRN FOR INCONTINENCE. CLINIMIX INFUSING. FISTULA TO L.ARM W/THRILLS AND BRUITS. MEPILEX TO BUTTOCKS REMAINS INTACT FOR SBD PREVENTION. MEDS TOLERATED CRUSHED IN APPLESAUCE. NO ACUTE CHANGES, VSS/AFEBRILE. WILL MONITOR AND REPORT TO DAY RN.
[2018-05-05 07:17] LABS: Magnesium, Blood 2.8 mg/dL (1.6-2.4)
--- NOTE | 2018-05-05 19:26 | NUR ---
PT. HAS BEEN SOMNOLENT MOST OF THE SHIFT TO THE POINT WHERE IT WAS UNSAFE TO GIVE MEDS. HAD DIALYSIS THIS MORNING. HAS REFUSED TO EAT TODAY AFTER BACK FROM DIALYSIS. PT. LEAVING ON HOSPICE ON FRIDAY.
--- NOTE | 2018-05-06 05:44 | NUR ---
SHIFT SUMMARY PT'S FAMILY HERE AT START OF SHIFT. TRYING TO GET PT TO EAT AND DRINK. PER SHIFT REPORT, PT TO GO HOME ON HOSPICE FRIDAY. LAST DIALYSIS COMPLETE YESTERDAY. PER REPORT PT REFUSED TO EAT OR DRINK ALL DAY YESTERDAY. PT ALSO REFUSED SOME OF HS MEDS. ABLE TO GET SMALL AMT OF MEDS WITH APPLESAUCE IN BEFORE PT CLAMPED HER LIPS SHUT. PT RESTED A LITTLE MORE QUIETLY LAST NIGHT THAN FRIDAY NIGHT. WOKE FOR CARE THIS AM AND STARTED MOANING. DOES NOT SPEAK OR FOLLOW COMMANDS. MORBIDLY OBESE, INCONTINENT OF URINE X1 THIS SHIFT. REPOSITIONED WITH PILLOWS, TO KEEP OFF BUTTOCKS. LE'S ELEVATED ON PILLOWS WITH HEEL PROTECTORS ON. R FOOT NECROTIC AREAS ON SEVERAL TOES. LUNGS T/O WITH CRACKLES IN BASES. ON RA. RFA IV INFILTRATED THIS AM. D/C'D WNL. UNABLE TO USE L ARM AT ALL D/T FISTULA. HX OF ESRD, HD, CHF, HTN, AND IDDM. BED ALARM ON FOR SAFETY. CALL LT IN REACH.
[2018-05-06 05:46] LABS: Albumin, Blood 2.8 g/dL (3.4-5.0); Anion Gap 9 mmol/L (6-16); Blood Urea Nitrogen 63 mg/dL (8-24); CO2, Blood 24 mmol/L (21-32); Calcium, Blood 9.2 mg/dL (8.5-10.1); Chloride, Blood 100 mmol/L (98-108); Creatinine, Blood 2.63 mg/dL (0.40-1.00); Glomerular Filtration Rate 18 (60-); Glucose, Blood 238 mg/dL (70-99); Magnesium, Blood 2.6 mg/dL (1.6-2.4); Phosphorus, Blood 5.6 mg/dL (2.5-4.9); Potassium, Blood 5.6 mmol/L (3.5-5.5); Sodium, Blood 133 mmol/L (136-145)
[2018-05-06 05:58] LABS: Hematocrit 37.1 % (33.0-51.0); Hemoglobin 11.3 g/dL (11.5-16.0)
--- NOTE | 2018-05-06 08:33 | NUR ---
DIALYSIS TALKED TO DR SOTO, HE WANTED TO SEE IF FAMILY WANTED DIALYSIS BEFORE ON COMFORT CARE DUE TO HER HIG K+. JOSE MIGUEL, RN IN PALLITIVE CARE CALLED THE FAMILY, THEY SAID NO.
--- NOTE | 2018-05-06 09:00 | NUR ---
PT. SLEEPING AY THIS TIME.
--- NOTE | 2018-05-06 10:56 | NUR ---
PT. MOANING AND GROANING IN PAIN 20 MG ROXANOL AND 1 MG OF ATIVAN GIVEN.
--- NOTE | 2018-05-06 11:15 | NUR ---
RETURNED FROM BREAK TO FIND PATIENT CRYING OUT IN PAIN, COVERING JUAN F NIEVES ORDERED A KPAD FOR PATIENT. PT. HAD BEEN REPOSITIONED AND SHE WAS STILL CRYING IN BACK, FROM HER BODY LANGUAGE IT APPEARED TO BE HER BACK. I LOWERED THE HEAD OF THE BED, REMOVED HER PILLOW AND RAISED THE FOOT OF THE BED, PT. IMMEDIATELY CALMED DOWN AND QUIT MOANING AND GROANING.
--- NOTE | 2018-05-06 11:25 | NUR ---
Pt visit this AM. Pt was placed on comfort care earlier this AM. Pt appears to be experiencing pain and anxiety as evidenced by maoning and squirming in bed. PAINAD score of 5/10. Suggested to Pt's nurse to offer another dose of ativan and schedule roxinol every hour until symptoms are managed. Will remain available.
--- NOTE | 2018-05-06 16:39 | NUR ---
PT. HAS BEEN SLEEPING EVER SINCE I REPOSITIONED HER. BREATHING EVEN AND DEEP. NO S/S OF DIstress at this time.
--- NOTE | 2018-05-06 18:10 | NUR ---
PT. SLEEPING COMFORTABLY BREATHING EVEN AND SHALLOW, SO S/S OF DISTRESS
--- NOTE | 2018-05-07 05:15 | NUR ---
SHIFT SUMMARY PT RESTING QUIETLY AT START OF SHIFT, EYES CLOSED. RESP E/U. PT MADE COMFORT CARE YESTERDAY. TO GO HOME ON HOSPICE TODAY. MEDICATED PER EMAR WHEN PT WOKE AND STARTED MOANING. NONVERBAL. REFUSES ANYTHING ORAL. ABLE TO GET SL MEDS IN ONLY. PT CALMED BRIEFLY AFTER 1ST DOSE OF MORPHINE, AND THEN SOON STARTED MOANING AGAIN. ATIVAN AND MORPHINE GIVEN, WHICH HELPED PT TO REST QUIETLY AGAIN. NO ACUTE CHANGES TO PRESENT. PT REPOSITIONED FOR COMFORT. BED ALARM ON FOR SAFETY.
--- NOTE | 2018-05-07 07:25 | NUR ---
PT. RESTING COMFORTABLY
[2018-05-07] MEDS ORDERED: LORA1 PO (10:02)
[2018-05-07] MEDS ORDERED: MORP20L SL (10:03)
[2018-05-07] MEDS ORDERED: ACET325S PR (10:04)
[2018-05-07] MEDS ORDERED: BUME2 PO (10:05)
[2018-05-07] MEDS ORDERED: Transderm-Scop1 EACH TD (10:05)
[2018-05-07] MEDS ORDERED: ATROPINE 0.01%-10 ML SL (10:06)
--- NOTE | 2018-05-07 11:40 | NUR ---
PT. STARTING TO MOAN AND GROAN MEDS GIVEN BEFORE DISCHARGE
== END 2018-05-07 11:08 | disposition hospice, home (50) | DRG 91 ==
LOC: ER 16:51 → MEDS 20:45 → EDPENDDIS 05-04 11:20 → ENPENDDIS 05-04 11:20 → MEDS 05-07 11:08
PROVIDERS: Emergency Medicine; Family Medicine; Internal Medicine; Internal Medicine Nephrology; ADMIT Hospitalist
PROC: 5A1D70Z Performance of Urinary Filtration, Intermittent, Less than 6 Hours Per Day (ICD-10-PCS; principal; 2018-04-20)
DX: G92 Toxic encephalopathy (principal); N18.6 End stage renal disease; I50.21 Acute systolic (congestive) heart failure; J96.01 Acute respiratory failure with hypoxia; N25.81 Secondary hyperparathyroidism of renal origin; N39.0 Urinary tract infection, site not specified; I13.2 Hypertensive heart and chronic kidney disease with heart failure and with stage 5 chronic kidney disease, or end stage renal disease; E87.0 Hyperosmolality and hypernatremia; E11.51 Type 2 diabetes mellitus with diabetic peripheral angiopathy without gangrene; Z79.4 Long term (current) use of insulin; Z99.2 Dependence on renal dialysis; E11.22 Type 2 diabetes mellitus with diabetic chronic kidney disease; R44.1 Visual hallucinations; Z89.421 Acquired absence of other right toe(s); E03.9 Hypothyroidism, unspecified; E78.5 Hyperlipidemia, unspecified; Z98.1 Arthrodesis status; Z96.643 Presence of artificial hip joint, bilateral; Z87.891 Personal history of nicotine dependence; F32.9 Major depressive disorder, single episode, unspecified; E87.70 Fluid overload, unspecified; E11.65 Type 2 diabetes mellitus with hyperglycemia; B96.20 Unspecified Escherichia coli [E. coli] as the cause of diseases classified elsewhere; F41.9 Anxiety disorder, unspecified; E78.2 Mixed hyperlipidemia; E88.09 Other disorders of plasma-protein metabolism, not elsewhere classified; Z66 Do not resuscitate; Z51.5 Encounter for palliative care; T40.605A Adverse effect of unspecified narcotics, initial encounter; Y92.9 Unspecified place or not applicable; D75.1 Secondary polycythemia
CPT/HCPCS: 36415; 51701; 51702; 70450; 71046; 74176; 80053; 80069; 80076; 81001; 82803; 82947; 83605; 83735; 83880; 84100; 84132; 84484; 85014; 85018; 85025; 87077; 87086; 87186; 92526; 92610; 93005; 93010; 93306; 94640; 94760; 96361; 96365; 97167; 97530; 99285-25; J0456; J0696; J0881; J1644; J1940; J2060; J2270; J7030; J7050; P9046